=== PATIENT | male | born 1955 | race Caucasian/White ===

== ENCOUNTER → 2024-03-22 11:03 | Outpatient (REF) | payer OTHER, SELFPAY | LOC: DHCBC/DCA 11:03 | PROVIDERS: ATTENDING PHYSICIAN Nurse Practitioner; FAMILY PHYSICIAN Internal Medicine | DX: R06.09 Other forms of dyspnea (principal) | CPT/HCPCS: 78452; 93017; A9500 ==

== ENCOUNTER → 2024-03-25 10:12 | Outpatient (REF) | payer OTHER, SELFPAY | LOC: HWRCS 10:12 | PROVIDERS: ATTENDING PHYSICIAN Nurse Practitioner; FAMILY PHYSICIAN Internal Medicine | DX: R06.09 Other forms of dyspnea (principal) | CPT/HCPCS: 93306 ==

== ENCOUNTER → 2024-04-28 07:14 | Outpatient (REF) | payer OTHER, SELFPAY | LOC: HWRAD 07:14 | PROVIDERS: ATTENDING PHYSICIAN Internal Medicine | DX: R10.13 Epigastric pain (principal); K21.9 Gastro-esophageal reflux disease without esophagitis | CPT/HCPCS: 76700 ==

== ENCOUNTER → 2024-06-10 10:02 | Outpatient (REF) | payer OTHER, SELFPAY | LOC: RAD 10:02 | PROVIDERS: ATTENDING PHYSICIAN Internal Medicine Cardiovascular Disease; FAMILY PHYSICIAN Internal Medicine | DX: E78.5 Hyperlipidemia, unspecified (principal); R06.09 Other forms of dyspnea; K21.9 Gastro-esophageal reflux disease without esophagitis; I77.810 Thoracic aortic ectasia; R07.89 Other chest pain; I25.10 Atherosclerotic heart disease of native coronary artery without angina pectoris; R94.39 Abnormal result of other cardiovascular function study | CPT/HCPCS: 75574; Q9967 ==

== ENCOUNTER 2024-06-17 12:00 | Day surgery (SDC) | payer OTHER, SELFPAY ==
[2024-06-17] VITALS (11 sets, daily range): BP systolic 101–159; BP diastolic 51–95; BMI 33.8
[2024-06-17] MEDS: NSS 330 ML IV (12:52)
[2024-06-17] MEDS: NSS 1000 IV (15:40)
--- NOTE | 2024-06-17 16:31 | ITS.CL.CATH ---
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
Cardiac Catheterization
Procedure Report:
CARDIAC CATHETERIZATION REPORT
Date of Procedure: 06/17/2024
Referring: Wayne Ortez MD
Indication: Exertional angina with equivocal stress test and abnormal CTA
�
HEMODYNAMIC DATA
AO: 128/74
LV: 128/10
�
LEFT VENTRICULOGRAPHY: Normal left ventricular function with EF 58%
�
CORONARY ANGIOGRAPHY
Dominance: Right
Left Main: Short without focal stenosis
LAD: The proximal LAD is highly calcified. There is 80% ostial/proximal LAD stenosis. The remainder of the LAD has mild luminal disease.
Circumflex: There is a small ramus intermedius branch without focal disease. The remainder of the circumflex system has mild luminal irregularities.
RCA: The RCA is severely calcified and occluded in the midportion. There are bridging collaterals faintly supplying the distal vessel and there are well-developed collaterals from the circumflex filling a medium to large PDA and a two medium sized
right posterolateral branches
�
Closure Device: None-the procedure was performed via the right radial artery
�
Radiation (mGy): 465
DAP (cm2.Gy): 39.5
Fluoroscopy time: 3.8 minutes
�
CONCLUSIONS
1:�Normal left ventricular function with EF 58%
2:�Severe double- vessel CAD as described
3. Recommend elective CABG x 2 (LAD, RPDA) with possible repair of ascending TAA
4. Patient has been advised to avoid strenuous activity to avoid angina. If his anginal pattern changes he is advised to present to the emergency room for admission
�
�
Copy to: Wayne Ortez MD, Bradley Turner MD, Ernie Huerta MD
�
Zach Lawler MD, [facility], [facility]
[2024-06-17] MEDS: TOPROL XL 25 MG PO (17:42)
--- NOTE | 2024-06-17 19:17 | PTCARENOTE ---
Pt is to be discharged after cardiac cath. Pt's blood pressure labile 146/91, 112/66, 101/51, and 136/95 over a 45 minute period. Pt denies dizziness and or lightheadedness at this time. Pt ambulated around recovery room and ambulated to bathroom
without difficulty. Pt and pt's state they are comfortable being discharged to home.
== END 2024-06-17 19:25 | disposition home or self-care (01) ==
LOC: CATH 12:00
PROVIDERS: ATTENDING PHYSICIAN Internal Medicine Cardiovascular Disease; FAMILY PHYSICIAN Internal Medicine; OTHER PHYSICIAN Internal Medicine Cardiovascular Disease
DX: I25.118 Atherosclerotic heart disease of native coronary artery with other forms of angina pectoris (principal); I25.84 Coronary atherosclerosis due to calcified coronary lesion; I10 Essential (primary) hypertension; E78.5 Hyperlipidemia, unspecified
CPT/HCPCS: 93005; 93458; C1894; Q9967

== ENCOUNTER 2024-07-08 05:20 | Inpatient (IN) | payer OTHER, SELFPAY ==
[2024-07-05 08:40] VITALS: BMI 35.3
[2024-07-05 09:15] LABS: Urine Albumin Negative (Neg - Trace); Urine Bilirubin Negative (Negative); Urine Character Clear (Clear); Urine Color Yellow; Urine Glucose Negative (Negative); Urine Ketone Negative (Negative); Urine Leukocyte Negative (Negative); Urine Nitrite Negative (Negative); Urine Occult Blood Negative (Negative); Urine Urobilinogen Negative (Neg - 1+)
[2024-07-05 09:29] LABS: APTT 28.9 Sec (23.4-35.0); INR 1.12; PT 14.2 Sec (11.4-14.6)
[2024-07-05 09:39] LABS: ALT (SGPT) 24 U/L (0-50); AST (SGOT) 30 U/L (17-59); Albumin 4.1 g/dl (3.5-5.0); Alkaline Phosphatase 87 U/L (38-126); Blood Urea Nitrogen 20 mg/dl (9-20); Calcium 9.4 mg/dl (8.4-10.2); Carbon Dioxide 27 mmol/L (22-30); Chloride 104 mmol/L (98-107); Direct Bilirubin 0.1 mg/dl (0.0-0.4); Estimated Creatinine Clearance 90 ml/min; Glucose 110 mg/dl (70-99); Potassium 4.5 mmol/L (3.5-5.1); Sodium 137 mmol/L (135-145); Total Bilirubin 0.8 mg/dl (0.2-1.3); Total Protein 6.8 g/dl (6.3-8.2); eGFR > 60.00
[2024-07-05 09:52] LABS: % Eosinophils 2.3 % (0-6); % Immature Granulocytes 0.2 % (0-0.5); % Lymphocytes 25.4 % (20.5-51.1); % Monocytes 9.9 % (1.7-9.3); % Neutrophils 61.2 % (42.2-75.2); Absolute Basophils 0.1 10^3/uL (0-0.2); Absolute Eosinophils 0.1 10^3/uL (0-0.7); Absolute Lymphocytes 1.6 10^3/uL (1.2-3.4); Absolute Monocytes 0.6 10^3/uL (0.1-0.6); Absolute Neutrophils 3.8 10^3/uL (1.4-6.5); Hematocrit 39.3 % (39.0-52.0); Hemoglobin 12.4 g/dL (13.0-18.0); Mean Corp Hgb Conc. 31.6 g/dL (33.0-37.0); Mean Corpuscular Hgb 23.4 pg (27.0-31.0); Mean Corpuscular Volume 74.3 fL (80.0-94.0); Nucleated Red Blood Cells % 0 % (-); Platelet Count 180 10^3/uL (130-400); Red Blood Cell Count 5.29 10^6/uL (4.70-6.10); Red Cell Dist. Width 15.9 % (11.5-14.5); White Blood Cell Count 6.1 10^3/uL (4.8-10.8)
[2024-07-05 12:30] LABS: Glycohemoglobin (HgbA1c) 6.3 % (4.0-5.6)
--- NOTE | 2024-07-05 13:08 | CM ---
spoke to pt and in PAT's, we discussed CABG preop teaching including sternal and driving restrictions, he is prev indep, lives with his in an apt with no steps to enter. he has the ct surg educ book, soap and instructions. he is agreeable
to a f/u visit from the ct transitional care nurses after dc. cm role explained and all questions answered.
[2024-07-08] VITALS (12 sets, daily range): BP systolic 97–132; BP diastolic 46–84; BMI 34.4
[2024-07-08] MEDS: MAGNESIUM OXIDE 500 MG PO (05:43)
[2024-07-08] MEDS: LOPRESSOR 25 MG PO (05:44)
[2024-07-08] MEDS: BACTROBAN 2% OINTMENT 1 APPLIC NASAL ×2 (05:44→19:24)
[2024-07-08] MEDS: PROTONIX 40 MG PO (05:44)
--- NOTE | 2024-07-08 05:59 | PTCARENOTE ---
received pt into 2261, pt admits to 2 showers and NPO since midnight, full admission completed, med list completed, pt has no hair d/t alopecia, post op education completed, all questions answered, awaiting CVOR
--- NOTE | 2024-07-08 07:22 | W.PN.CD ---
Today's Communication / Plan
-
Anticipate routine post operative management.
Wean pressors.
Wean vent to extubate.
Maintain MAP > 65, CI > 2.2.
Impression / Plan
-
Impression/Plan: 69 y/o male with HTN, HLD, NIDDM2, hypothyroidism, hx of concussion/SDH ([place], 2019), multivessel CAD and a moderately dilated ascending aorta presenting for elective CABG, possible ascending aorta wrap vs. replacement.
#CAD
-Chronic.
-Cath shows 80% ostial/prox LAD, RCA [employer].
-Plan for CABG today.
-Anticipate routine post operative care.
#Ascending aorta dilation
-Chronic.
-Dilation up to 4.7 cm.
-Anticipate wrap vs. replacement based on findings at surgery.
#HTN
-Chronic, stable.
-Adjust medications post op.
#HLD
-Chronic, stable.
-Continue high dose, high potency statin.
#NIDDM
-Chronic, stable.
-HbA1c = 6.3%.
-The patient would likely benefit from GLP-1 agonists at discharge.
Subjective/Interval History:
Surgery today.
DATA:
Cardiac Catheterization, 06/17/2024:
CORONARY ANGIOGRAPHY
Dominance: Right.
Left Main: Short without focal stenosis.
LAD: The proximal LAD is highly calcified. There is 80% ostial/proximal LAD stenosis. The remainder of the LAD has mild luminal disease.
Circumflex: There is a small ramus intermedius branch without focal disease. The remainder of the circumflex system has mild luminal irregularities.
RCA: The RCA is severely calcified and occluded in the midportion. There are bridging collaterals faintly supplying the distal vessel and there are well-developed collaterals from the circumflex filling a medium to large PDA and a two medium sized
right posterolateral branches.
TTE, 03/25/2024:
CONCLUSIONS
Normal left ventricular size, wall thickness and systolic function. LV ejection
fraction is 55-60%.
No significant valvular disease.
No significant change since the prior study of 2019.
CT Chest, 06/12/2023:
IMPRESSION:
3 mm left lower lobe nodule is less conspicuous in attenuation, though unchanged in size, consistent with benign etiology.
No new findings.
Stable fusiform aneurysmal dilatation of the ascending aorta, 4.7 cm.
Physical Exam
Vital Signs/Labs
Vital Signs
Temp Pulse Resp Pulse Ox
36.6 C 70 20 99
07/08/24 06:03 07/08/24 06:03 07/08/24 06:03 07/08/24 06:03
07/06/24 07/07/24 07/08/24
11:59 11:59 11:59
Actual Weight 108.8 kg
07/05/24 08:51
07/05/24 08:51
PT 14.2 Sec (11.4-14.6) 07/05/24 08:51
INR 1.12 07/05/24 08:51
APTT 28.9 Sec (23.4-35.0) 07/05/24 08:51
Physical Exam
Exam deferred at Dr. Huerta's request (currently operating).
Data Reviewed
-
Date of Service: July 08, 2024
Medical Decision Making: Reviewed Test Results, Test Interpretation and Review of Case with other Provider
EKG: Tracing Personally Visualized and interpreted and Report Reviewed by me
Echo: Report Reviewed by me
X-Ray/CT/US/MRI/NUC/PET: Image Personally Visualized and interpreted and Report Reviewed by me
Medical Tests (PFT, Pathology etc): Report Reviewed by me
Labs: Labs Reviewed by me
Old Records: Reviewed
[2024-07-08 07:29] LABS: ACT+ - POC 107 Seconds (82-134)
[2024-07-08 07:41] LABS: Urine Albumin Negative (Neg - Trace); Urine Bilirubin Negative (Negative); Urine Character Clear (Clear); Urine Color Yellow; Urine Glucose Negative (Negative); Urine Ketone Negative (Negative); Urine Leukocyte Negative (Negative); Urine Nitrite Negative (Negative); Urine Occult Blood Negative (Negative); Urine Specific Gravity 1.025 (<1.030); Urine Urobilinogen Negative (Neg - 1+)
[2024-07-08 09:48] LABS: B.E. - POC -3.3 mmol/L; Glucose - POC 121 mg/dl (65-99); HCO3 - POC 21 mmol/L (21-29); Hematocrit - POC 34 % PCV (42-52); Hemodilution- POC No; Hemoglobin Calculated - POC 11.5; Ionized Calcium - POC 1.24 mmol/L (1.12-1.27); O2 Saturation %Calculated-POC 99.8 5 (92-96); PCO2 - POC 36 mmHg (35-45); PO2 - POC 236 mmHg (80-100); POC Comment BASELINE; Sodium - POC 139 mmol/L (135-145); pH - POC 7.38 (7.35-7.45)
[2024-07-08 10:06] LABS: ACT+ - POC 895 Seconds (82-134)
[2024-07-08 10:14] LABS: B.E. - POC -0.6 mmol/L; Glucose - POC 156 mg/dl (65-99); HCO3 - POC 24 mmol/L (21-29); Hematocrit - POC 27 % PCV (42-52); Hemodilution- POC Yes; Hemoglobin Calculated - POC 9.3; Ionized Calcium - POC 1.04 mmol/L (1.12-1.27); PCO2 - POC 37 mmHg (35-45); PO2 - POC 402 mmHg (80-100); POC Comment CPB; Potassium - POC 5.2 mmol/L (3.6-5.0); Sodium - POC 138 mmol/L (135-145); pH - POC 7.42 (7.35-7.45)
[2024-07-08 10:30] LABS: ACT+ - POC 859 Seconds (82-134)
[2024-07-08 10:40] LABS: B.E. - POC -1.6 mmol/L; Glucose - POC 160 mg/dl (65-99); HCO3 - POC 23 mmol/L (21-29); Hematocrit - POC 32 % PCV (42-52); Hemodilution- POC Yes; Hemoglobin Calculated - POC 10.8; Ionized Calcium - POC 1.13 mmol/L (1.12-1.27); O2 Saturation %Calculated-POC 99.9 5 (92-96); PCO2 - POC 38 mmHg (35-45); PO2 - POC 325 mmHg (80-100); POC Comment CPB; Potassium - POC 4.7 mmol/L (3.6-5.0); Sodium - POC 140 mmol/L (135-145)
[2024-07-08 10:54] LABS: ACT+ - POC 743 Seconds (82-134)
--- NOTE | 2024-07-08 11:03 | CM ---
pt in OR today, cm to follow.
[2024-07-08 11:15] LABS: B.E. - POC -0.4 mmol/L; Glucose - POC 136 mg/dl (65-99); HCO3 - POC 24 mmol/L (21-29); Hematocrit - POC 32 % PCV (42-52); Hemodilution- POC Yes; Hemoglobin Calculated - POC 10.9; Ionized Calcium - POC 1.11 mmol/L (1.12-1.27); O2 Saturation %Calculated-POC 99.9 5 (92-96); PCO2 - POC 38 mmHg (35-45); PO2 - POC 352 mmHg (80-100); POC Comment WARM; Potassium - POC 4.8 mmol/L (3.6-5.0); Sodium - POC 143 mmol/L (135-145); pH - POC 7.41 (7.35-7.45)
[2024-07-08 11:18] LABS: ACT+ - POC 98 Seconds (82-134)
[2024-07-08 11:58] LABS: B.E. - POC -1.5 mmol/L; Glucose - POC 114 mg/dl (65-99); HCO3 - POC 24 mmol/L (21-29); Hematocrit - POC 32 % PCV (42-52); Hemodilution- POC Yes; Hemoglobin Calculated - POC 10.9; Ionized Calcium - POC 1.23 mmol/L (1.12-1.27); O2 Saturation %Calculated-POC 99.9 5 (92-96); PCO2 - POC 40 mmHg (35-45); PO2 - POC 337 mmHg (80-100); POC Comment POST; Sodium - POC 143 mmol/L (135-145); pH - POC 7.38 (7.35-7.45)
--- NOTE | 2024-07-08 12:09 | W.CVOR.SURPR ---
CVOR Surgeon Immed Pre Op
-
I have examined this patient prior to performance of the scheduled procedure.
The patient's condition is unchanged from the time of the dictated/written History and
Physical and the patient is able to undergo the scheduled procedure.
--- NOTE | 2024-07-08 12:09 | W.IMMPOSTOP ---
Addendum entered and electronically signed by Ernie Huerta MD 07/08/24 13:38:
[id number]
Original Note:
Surgical Immed Post Op Note
-
CARDIAC SURGERY OPERATIVE NOTE:
Preoperative Dx:
2V CAD
Enlarged ascending aorta
Postoperative Dx:
Same
Procedures:
1) Median sternotomy
2) Takedown of MARYAN (narrow pedicle)
3) Endoscopic harvest/prep of RLE GSV
4) CABG x 2 (MARYAN to LAD, GSV to PDA)
5) Ascending aortic wrap w/ hemashield graft
Surgeon:
Ernie Huerta M.D.
Assistants:
Ally WardAStephanie-CStephanie; escrow assistant throughout, closure
Richy SalgadoCStephanie; endoscopic harvest/prep of RLE GSV, closure ([id number])
Anesthesia:
Timothy Arevalo M.D. and Tyra LeonardR.N.A.
Perfusion:
Brandi Veloz C.C.P.; XC: 63min, CPB: 86min
Findings:
MARYAN was healthy appearing conduit w/ very brisk blood flow; ELD 2.5mm
GSV was healthy appearing conduit w/ ELD 3.5-4.0mm
LAD was visible on epicardial surface, moderately dense scattered calcifications; ELD 2.75mm
PDA was visible on epicardial surface, normal gutierrez; ELD 2.5mm
Ascending aorta was enlarged, but otherwise had a normal phenotypical appearance w/ normal wall thickness (max diameter on MATTEO 4.2cm, on CT (per my interpretation) 4.3-4.5cm, on CT (per radiology report) 4.9cm
MATTEO: Normal biventricular function w/o RWMA, no significant valvular pathology
Implants:
Hemashield Hernando vascular graft: LOT [id number]; SN: [id number]
CT x 3 (left pleural, inferior mediastinal, superior mediastinal)
Sternal wires x 8
Sternal 'X' plate w/ 8 - 14mm screws; sternal 'square' plate w/ 4 - 12mm screws
Transfusions:
None
Complications:
None
Condition:
60 isoelectric sinus, 111/73, CVP 19. 100%
GTTS: levophed 4, precedex 0.6, insulin 1
Stable/guarded to CVICU
--- NOTE | 2024-07-08 12:32 | CON.INTV ---
Consultation
Consultation Request
Date/Time Consultation Requested: 07/08/2024 - 1203
Date/Time Consultation Performed: 07/08/2024 - 1231
Requesting Provider: Huma Deluca PA-C
Performing Provider: Warren Connor MD
Reason for Consultation: s/p CABG x2 + aortic wrap
Medical History
-
Chief Complaint: Elective CABG + aortic wrap
History of Present Illness:
69-year-old male non-smoker with a past medical history of multivessel CAD, AAA, HTN/HLD, hypothyroidism, DM type II, mild NELLY using oral appliance device, history of diverticulosis, bilateral diaphragmatic hernia, stable LLL 4 mm pulmonary nodule,
history of concussion c/b SDH and lumbosacral DDD who presents with elective CABG + aortic wrap. Patient known to cardiothoracic surgery service with last office visit on 06/21/[address] Huerta. He has known multivessel CAD and surgical
revascularization was reviewed including its risks and benefits. He also has stable aneurysmal dilation of his ascending aorta up to 4.7 cm. Ascending aortic wrap was also recommended at the time of his CABG. Patient noted minimal dyspnea with
exertion and minor episodes of chest discomfort with exertion. After reviewing the risk and benefits of the procedure patient agreed to proceed with surgical intervention. Today he underwent CABG x 2 and ascending aortic wrap with Hemashield
graft. Patient tolerated procedure with no immediate complications, and transferred to the CVICU with 3 chest tubes (left pleural + mediastinal x 2). Critical care services consulted for additional management/recommendations.
When I saw the patient he was in bed, intubated on SIMV at 14/600/40%/5, PSV: 5. PIP is 24 cmH2O, he is breathing at 14 breaths minute with VTe of 494 mL. BP via left radial A-line: 110/70, BP via NIBP: 122/70, and heart rate 54. He is currently
on levo at 2 mcg/min + insulin at 2.6 units/hr.
Of note patient follows with us in the [facility] office with Dr. Mckenzie, last office visit on 07/28/2023. Patient follows for mild NELLY using OAD with hypnagogic hallucination and LLL 4mm nodule (stable from 09/2020 - 05/2022). His baseline sleep apnea
test via [facility] in June 2022 showed an ИВАН of 6.4 with a geovanny desaturation of 84%.
PMHx: Multivessel CAD, AAA without rupture, hypertension, hyperlipidemia, hypothyroidism, DM type II, GERD, gastritis, colonic polyps, plantar fasciitis, history of concussion c/b SDH, lumbosacral DDD, diverticulosis, bilateral diaphragmatic hernia,
alopecia, LLL 4 mm pulmonary nodule, history of tinnitus, mild NELLY on oral appliance device
PSHx: Left knee arthroscopy, C5-6 epidural
Past Medical History
Past Medical History: Other (Above as per HPI)
Past Surgical History: Other (Above as per HPI)
Social History
Tobacco: Non-smoker
Alcohol: Occasional (Socially on the weekends with beer and wine)
Drug: None
Family History
Family History: CAD (Father + mother), Hypertension (Father) and Other (Brother: History of MS; at age 60 from MRSA pneumonia; Brother: Aortic aneurysm)
Allergies / Home Medications
Allergies
Allergy/AdvReac Type Severity Reaction Status Date / Time
No Known Allergies Allergy Verified 06/30/24 10:40
Home Medications
�Medication �Instructions �Recorded �Confirmed �Last Taken �Type
aspirin 81 mg tablet,delayed 81 mg PO DAILY 08/02/20 07/08/24 07/07/24 08:00 History
release (Ecotrin Low Strength)
omeprazole 20 mg capsule,delayed 20 mg PO DAILY 08/02/20 07/08/24 07/07/24 08:00 History
release
valacyclovir 500 mg tablet 500 mg PO DAILY PRN cold sores 08/02/20 07/08/24 06/27/24 08:00 History
esomeprazole magnesium 20 mg 20 mg PO QPM 06/09/24 07/08/24 07/07/24 18:00 History
capsule,delayed release
losartan 100 mg tablet 100 mg PO DAILY 06/09/24 07/08/24 07/07/24 08:00 History
metoprolol succinate 25 mg 25 mg PO QPM 06/09/24 07/08/24 07/07/24 18:00 History
tablet,extended release 24 hr
(Toprol XL)
atorvastatin 80 mg tablet (Lipitor) 80 mg PO QPM 06/17/24 07/08/24 07/07/24 18:00 History
levothyroxine 112 mcg tablet 112 mcg PO DAILY 06/17/24 07/08/24 07/07/24 06:00 History
nitroglycerin 0.4 mg sublingual 0.4 mg sublingual [id number] PRN 06/17/24 07/08/24 06/27/24 08:00 Rx
tablet chest pain #25 tabs
sucralfate 1 gram tablet 1 g PO BID 06/17/24 07/08/24 07/07/24 12:00 History
Review of Systems
-
Unable to Obtain full review of systems at this time due to: Patient Intubation
Vitals / Labs / Diagnostic Testing
Vital Signs
Temp Pulse Resp BP Pulse Ox
97.7 F 61 14 125/78 98
07/08/24 12:49 07/08/24 13:46 07/08/24 13:46 07/08/24 13:46 07/08/24 13:46
Lab Data
07/08/24 12:44
Laboratory Results
07/08/24
12:44
PT 17.5 H
INR 1.46
APTT 30.4
pH 7.39
pCO2 38
pO2 156 H
HCO3 23.0
O2 Delivery Level
Microbiology
07/05/24 08:51 Nose MRSA Screen - Final
No Methicillin Resistant Staphylococcus aureus isolated.
Diagnostic Testing:
Physical Exam
-
HEENT: Normocephalic, Anicteric and Other (ETT in place)
Cardiovascular: S1/S2 and Peripheral Edema (negative)
Respiratory: Wheeze (negative), Rales (negative), Rhonchi (negative), Non-Labored Respirations and Other (Mechanical breath sounds heard bilaterally)
GI: Soft, Non Distended, Non Tender and Normal Bowel Sounds
Neurology: Tremors (negative) and Other (Sedated, easily arousable to voice and tactile stimulation)
Skin: Warm and Dry
General: Respiratory Distress (negative), Comfortable, Fever (negative), Chills (negative) and Sweats (negative)
Assessment
-
Assessment: 69-year-old male non-smoker with a past medical history of multivessel CAD, AAA, HTN/HLD, hypothyroidism, DM type II, mild NELLY using oral appliance device, history of diverticulosis, bilateral diaphragmatic hernia, stable LLL 4 mm
pulmonary nodule, history of concussion c/b SDH and lumbosacral DDD who presents with elective CABG + aortic wrap. Patient known to cardiothoracic surgery service with last office visit on 06/21/[address] Huerta. He has known multivessel CAD and
surgical revascularization was reviewed including its risks and benefits. He also has stable aneurysmal dilation of his ascending aorta up to 4.7 cm. Ascending aortic wrap was also recommended at the time of his CABG. Patient noted minimal
dyspnea with exertion and minor episodes of chest discomfort with exertion. After reviewing the risk and benefits of the procedure patient agreed to proceed with surgical intervention. On 07/08/2024 he underwent CABG x 2 and ascending aortic wrap
with Hemashield graft. Patient tolerated procedure with no immediate complications, and transferred to the CVICU with 3 chest tubes (left pleural + mediastinal x 2). Critical care services consulted for additional management/recommendations.
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
diaphragmatic hernia, alopecia, LLL 4 mm pulmonary nodule, history of tinnitus, mild NELLY on oral appliance device
Impression:
#MV CAD s/p CABG x 2 (POD #0)
#AAA without rupture s/p ascending aortic wrap with Hemashield graft (POD #0)
#Anemia (last Hb 12.4 on 07/05/2024)
#Mild NELLY on oral appliance device
#History of hypertension
#History of hyperlipidemia
#History of DM type II
#GERD
Plan:
Ventilator settings reviewed
FiO2 will be weaned to maintain SpO2 >90-94%
Minute ventilation will be adjusted
Arterial blood gases will be monitored
Spontaneous breathing trial will be attempted with hopeful extubation after anesthesia/sedation wear off
prn nebulized bronchodilators
Pulmonary artery catheter parameters will be followed
Pressors/antihypertensive/inotropes/diuretics will be provided as needed
Maintain MAP>65
Replete electrolytes with K>4, Mg>2
Monitor chest tube output (left pleural chest tube x 1 + mediastinal chest tubes x 2)
Monitor hemoglobin
Monitor platelet count and coags
Transfuse blood products as needed to maintain Hb>7g/dL, plt>50k (given post-operative status)
CT surgery managing chest tubes
Monitor blood sugar to maintain euglycemia with goal BG 140-180
Insulin drip per protocol
Aspiration precautions
VAP prevention protocol
DVT prophylaxis
Early nutrition
Early mobilization
Patient recommended to follow-up with our [facility] office as last visit was on 07/28/[address] Mckenzie. This will be arranged for the patient.
Critical care statement: A total of 46 minutes of critical care time was provided for this patient today. This includes management of ventilator, spontaneous breathing trial, arterial blood gases, pressors, of unstable vital signs, evaluation of the
patient at bedside, reviewing the patient's pertinent medical records including radiographs, microbiology, laboratory evaluations, and discussion with primary team and critical care nursing.
Data:
CXR 07/08/2024: No acute disease of the chest. No pneumothorax.
[2024-07-08 12:48] LABS: Glucose - Point of Care 129 mg/dl (70-99)
[2024-07-08] MEDS: DILAUDID 0.5 MG IV ×2 (12:57→19:35)
[2024-07-08 12:59] LABS: B.E. -1.7 mmol/L; Ionized Calcium 1.16 mMOL/L (1.15-1.33); O2 Saturation % 99.7 % (94-98); PCO2 38 mmHg (35-48); PO2 156 mmHg (83-108); Potassium 3.9 mMOL/L (3.5-5.1); Sodium 137 mMOL/L (136-145); pH 7.39 (7.35-7.45)
[2024-07-08 13:11] LABS: Hematocrit 33.1 % (39.0-52.0); Hemoglobin 10.7 g/dL (13.0-18.0); Platelet Count 159 10^3/uL (130-400)
[2024-07-08] MEDS: CALCIUM CHLORIDE 10% SYRINGE 50 MG IV (13:13)
[2024-07-08] MEDS: CALCIUM CHLORIDE 10% SYRINGE 50 ML IV (13:13)
[2024-07-08] MEDS: KCL 50 IV ×2 (13:13→14:28)
[2024-07-08 13:14] LABS: INR 1.46; PT 17.5 Sec (11.4-14.6)
[2024-07-08 13:15] LABS: APTT 30.4 Sec (23.4-35.0)
[2024-07-08] MEDS: SYNTHROID PO (13:16)
[2024-07-08] MEDS: ANCEF 10 IV ×2 (13:17)
[2024-07-08] MEDS: NSS 500 IV (13:18)
[2024-07-08] MEDS: NEURONTIN PO ×2 (13:18→15:04)
[2024-07-08 13:22] LABS: Blood Urea Nitrogen 20 mg/dl (9-20); Estimated Creatinine Clearance 111 ml/min; Glucose 128 mg/dl (70-99); Magnesium 2.6 mg/dl (1.6-2.3)
--- NOTE | 2024-07-08 13:23 | PTCARENOTE ---
Received pt from CVOR team. Intubated and sedated on the vent. Vent per anesthesia. # 8 ETT at 23 rt lip. pulse ox 100% RT IJ cordis with slick. LT radial A line transducing. Lines leveled, recalibrated and flushed. SR w/ BBB on monitor.
Chest tubes x 3 t o- 20 cm suction. No air leak or crepitus noted. RT groin puncture intact. Sternal incision with Aquacel, c,d,i. RT leg SVG site well approximated with Julio wrap intact. Pulses palpable. No edema appreciated. Drips on arrival
as follows: Insulin, precedex, and levophed, see flowsheet for totals/rates.
[2024-07-08 14:01] LABS: Glucose - Point of Care 188 mg/dl (70-99)
[2024-07-08] MEDS: PRECEDEX 100 IV (14:28)
[2024-07-08] MEDS: TYLENOL PO (14:29)
--- NOTE | 2024-07-08 14:52 | PTCARENOTE ---
Starting to wake spontaneously . nods head appropriately. Remains sleepy at present. Precedex weaned off. Will continue to monitor closely.
[2024-07-08 15:00] LABS: Glucose - Point of Care 133 mg/dl (70-99)
[2024-07-08] MEDS: PACERONE PO (15:04)
[2024-07-08] MEDS: OFIRMEV 100 IV (15:32)
--- NOTE | 2024-07-08 15:48 | PTCARENOTE ---
Attempted to CPAP patient. Pt remains too drowsy at present. Placed back on SIMV. Will attempt once more awake.
[2024-07-08 16:04] LABS: Glucose - Point of Care 107 mg/dl (70-99)
--- NOTE | 2024-07-08 16:25 | CM ---
pt in OR today, cm to follow
[2024-07-08 16:30] LABS: Hematocrit 34.3 % (39.0-52.0); Platelet Count 188 10^3/uL (130-400)
--- NOTE | 2024-07-08 16:35 | PTCARENOTE ---
Pt much more awake and becoming restless in bed. RT called to initiate CPAP trial. Pt remains restless. Washed with CHG wipes, turned and repositioned. Gown applied. Will obtain ABG as per protocol
[2024-07-08 16:49] LABS: Glucose - Point of Care 118 mg/dl (70-99)
[2024-07-08 16:58] LABS: B.E. -5.5 mmol/L; HCO3 20.7 mmol/L (21-28); Ionized Calcium 1.31 mMOL/L (1.15-1.33); PCO2 42 mmHg (35-48); PO2 136 mmHg (83-108); Sodium 138 mMOL/L (136-145)
--- NOTE | 2024-07-08 16:59 | PTCARENOTE ---
While CPAP trial ongoing, pt very diaphoretic. Blood sugar obtained and 118. VSS. Face washed, cool cloth applied to forehead
[2024-07-08 17:03] LABS: O2 Therapy CPAP 5/5
--- NOTE | 2024-07-08 17:11 | PTCARENOTE ---
Extubated to 6 L NC. 97%. updated, and at bedside
--- NOTE | 2024-07-08 17:19 | RESPNOTE ---
1710
Extubated to 6 liter NC without incident 97%
IS started 1250mL
[2024-07-08] MEDS: LIPITOR PO (17:32)
[2024-07-08] MEDS: LOW STRENGTH ASPIRIN 81 MG PO (17:36)
[2024-07-08] MEDS: ROXICODONE 5 MG PO ×2 (17:36→21:49)
[2024-07-08] MEDS: ZOFRAN 4 MG IV (17:44)
[2024-07-08 18:13] LABS: B.E. -6.9 mmol/L; HCO3 18.5 mmol/L (21-28); PCO2 36 mmHg (35-48); PO2 114 mmHg (83-108); pH 7.32 (7.35-7.45)
[2024-07-08] MEDS: SODIUM BICARBONATE 50 MEQ IV ×2 (18:20→21:54)
[2024-07-08 19:05] LABS: Glucose - Point of Care 136 mg/dl (70-99)
[2024-07-08] MEDS: ANCEF 5 IV (19:24)
[2024-07-08] MEDS: SENOKOT-S 1 TABLET PO (19:25)
[2024-07-08 20:10] LABS: B.E. -5.3 mmol/L; HCO3 20.6 mmol/L (21-28); O2 Saturation % 98.6 % (94-98); PCO2 41 mmHg (35-48); PO2 95 mmHg (83-108); pH 7.31 (7.35-7.45)
--- NOTE | 2024-07-08 20:20 | PTCARENOTE ---
Pt received from kvein RN. Walking rounds completed. Pt AAOx3. Sinus rhythm to sinus monique on the tele monitor. HR 50-60s. BP 100-120s/60-70s. Levo titrated OFF per protocol. CVP 8-12. Palpable pulses throughout. Pt on 4 L NC. POX 96-99%. Deep
breathing and IS encouraged. Lung sounds diminished at the base. Mediastinal CT x2 and Left pleural CT to -20 suction, no air-leak or tidaling noted, and output WNL. CT dressing changed. Abdomen round and nontender. Arthur catheter CDI and draining
yellow urine. Denies nausea at this time. Right groin puncture site intact. Right leg SVG site wrapped in NERISSA wrap and CDI. Sternal Aquacel CDI. Left radial a-line intact. Right IJ cordis w/ slick CDI. All lines leveled, zeroed, and flushed. Pt
diaphoretic. Pt repositioned in bed, given ice packs, fan turned on, and gown/lines changed. Pt c/o pain - see JAN. Glycemic protocol followed. See worklist for full nursing assessment and interventions. Ordered ABG drawn and sent. Call kaufman within
reach.
[2024-07-08 21:10] LABS: Glucose - Point of Care 127 mg/dl (70-99)
[2024-07-08] MEDS: NEURONTIN 100 MG PO (21:49)
[2024-07-08] MEDS: TYLENOL 1000 MG PO (21:49)
[2024-07-08] MEDS: REGLAN 10 MG IV (22:09)
--- NOTE | 2024-07-08 22:30 | PTCARENOTE ---
At ~2150, pt c/o nausea and was retching. Pt was sat up in bed and given Reglan - see MAR. At this time, pt HR and BP dropped. CTPA at the bedside. Pt never lost consciousness and quickly recovered. No emesis. VSS. Pt AAOx3. Pt repositioned in bed.
Call kaufman within reach.
[2024-07-08 23:07] LABS: Glucose - Point of Care 152 mg/dl (70-99)
[2024-07-08] MEDS: LR 500 IV (23:16)
[2024-07-09] VITALS (25 sets, daily range): BP systolic 97–128; BP diastolic 56–84; PULSE 72; O2SAT 93–97; BMI 34.7
--- NOTE | 2024-07-09 00:23 | PTCARENOTE ---
Pt reassessed. Pt SR on the tele monitor. HR 70s. BP 100-120s/60-70s. CVP 5-10. Pt remains on 4 L NC. POX 95%. CT assessment unchanged from previous. 500 LR bolus initiated as ordered. All surgical sites stable. Glycemic protocol followed. All lines
leveled, zeroed, and flushed. Arthur catheter CDI and draining yellow urine. Call kaufman within reach.
[2024-07-09 01:07] LABS: Glucose - Point of Care 120 mg/dl (70-99)
[2024-07-09] MEDS: DILAUDID 0.5 MG IV ×2 (01:10→23:24)
[2024-07-09 01:30] LABS: Glucose - Point of Care 95 mg/dl (70-99)
[2024-07-09 02:04] LABS: Glucose - Point of Care 121 mg/dl (70-99)
[2024-07-09 03:09] LABS: Glucose - Point of Care 117 mg/dl (70-99)
[2024-07-09 03:43] LABS: Hematocrit 30.7 % (39.0-52.0); Hemoglobin 9.8 g/dL (13.0-18.0); Mean Corp Hgb Conc. 31.9 g/dL (33.0-37.0); Mean Corpuscular Hgb 22.8 pg (27.0-31.0); Mean Corpuscular Volume 71.4 fL (80.0-94.0); Mean Platelet Volume 10.6 fL (7.4-10.4); Platelet Count 146 10^3/uL (130-400); Red Cell Dist. Width 16.1 % (11.5-14.5); White Blood Cell Count 16.6 10^3/uL (4.8-10.8)
[2024-07-09 03:57] LABS: Blood Urea Nitrogen 27 mg/dl (9-20); Calcium 9.2 mg/dl (8.4-10.2); Carbon Dioxide 26 mmol/L (22-30); Chloride 109 mmol/L (98-107); Estimated Creatinine Clearance 111 ml/min; Glucose 108 mg/dl (70-99); Magnesium 2.1 mg/dl (1.6-2.3); Potassium 4.7 mmol/L (3.5-5.1); Sodium 142 mmol/L (135-145); eGFR > 60.00
[2024-07-09 04:11] LABS: Glucose - Point of Care 126 mg/dl (70-99)
[2024-07-09] MEDS: ANCEF 5 IV ×2 (04:13→11:22)
[2024-07-09 05:01] LABS: Glucose - Point of Care 99 mg/dl (70-99)
--- NOTE | 2024-07-09 05:02 | W.PN.CT ---
Addendum entered and electronically signed by Ernie Huerta MD 07/09/24 08:57:
I saw and examined the patient.
The PA's note was reviewed and I agree with the note.
Comment:
Postop day #1 status post coronary bypass grafting x 2 (MARYAN to LAD, greater saphenous vein to PDA), and ascending aortic wrap
No major overnight issues. Off vasoactive infusions. De-lined this a.m. CXR: Mild to moderate pulmonary edema, no significant effusions, bilateral atelectasis
Diuresis
Aspirin/Plavix/statin/beta-deondre
OOB, ambulate
Maintain chest tubes today
SUGEY Arthur
Original Note:
Today's Communication / Plan
-
Patient is progressing well.
Off vasoactive infusions. Invasive monitoring lines were removed. SLIC catheter removed.
Aspirin, high intensity statin, consider low-dose beta-deondre today.
EKG reviewed: Sinus rhythm with no significant ST changes. Official report pending.
Wean nasal cannula oxygen as tolerated for oxygen sat goals greater than 90%. Incentive spirometry encouraged. Mobilize.
Nausea/dry heaving has improved. Continue as needed Zofran and Reglan. Belly soft.
Mild 1+ peripheral edema. Consider gentle diuresis.
Mild leukocytosis consistent with postoperative reaction. Monitor closely. Afebrile.
Out of bed, ambulate, cardiac rehab.
Excellent initial progress.
Assessment / Plan
-
CABG x 2 with MARYAN to LAD, GSV to PDA, ascending aortic wrap with Hemashield graft on 07/08/[address] Huerta, POD #1
MATTEO: Prebypass LVEF 55% with no regional wall motion normalities, trace MR, trace. Post bypass LVEF 60% with no new regional wall motion abnormalities, trace TR, trace PI, trace AI, no MR
Thoracic aortic aneurysm
Coronary artery disease
Hypertension
Hyperlipidemia
Hypothyroidism
Type 2 diabetes
Gastroesophageal reflux disease
Gastritis
Colon polyps
HNP C5/6
Plantar fasciitis
Concussion
Subdural hematoma
Degenerative disc disease
Diverticulitis
Bilateral diaphragmatic hernias
Nephritis
Alopecia
4 mm left lower lobe nodule
Tinnitus
Acute postoperative blood loss anemia
Acute postoperative respiratory insufficiency
Acute postoperative pain
Acute postoperative hypovolemia
Acute postoperative atelectasis
Acute postoperative distributive shock now resolved.
Subjective
Procedure
CABG x 2 with MARYAN to LAD, GSV to PDA, ascending aortic wrap with Hemashield graft on 07/08/[address] Huerta, POD #1
MATTEO: Prebypass LVEF 55% with no regional wall motion normalities, trace MR, trace. Post bypass LVEF 60% with no new regional wall motion abnormalities, trace TR, trace PI, trace AI, no MR
-
Date of Service: July 09, 2024
Feels okay. Having a lot of pain. Nausea and dry heaving last night has resolved. No other new concerns.
Objective Data
-
Lab Results
07/09/24 03:09
07/09/24 03:09
PT 17.5 Sec (11.4-14.6) H 07/08/24 12:44
INR 1.46 07/08/24 12:44
APTT 30.4 Sec (23.4-35.0) 07/08/24 12:44
Vital Signs
Vital Signs
Temp Pulse Resp BP Pulse Ox
98.1 F 67 19 114/70 95
07/09/24 04:00 07/09/24 05:00 07/09/24 05:00 07/09/24 04:00 07/09/24 05:00
CT Intake/Output/Weight
07/08/24 07/08/24 07/09/24
06:59 18:59 06:59
Intake Total 238.9 / 381.2 142.3 / 381.2
Output Total 495 / 1152 657 / 1152
Balance -256.1 / -770.8 -514.7 / -770.8
SaO2: 95
Physical Exam
-
General: Awake and Oriented
Cardiovascular: Regular rate & rhythm
Respiratory: Clear and Equal
Sternum: Stable
Incision: Dressing Intact
Extremities: Edema +1
Data Reviewed
-
Lab Results: Results Reviewed
Medications: Active Meds Reviewed
Chest X-Ray: Report Reviewed and Image Reviewed
--- NOTE | 2024-07-09 05:10 | PTCARENOTE ---
Pt reassessed. Pt SR on the tele monitor. HR 60-70s. BP 110's/60s. Pt remains on 4 L NC. POX 94%. CT assessment unchanged. Arthur catheter intact and draining yellow urine. All surgical sites stable. EKG obtained. Left radial a-line, slick, and CVP
discontinued per CTPA. Glycemic protocol followed. Call kaufman within reach.
[2024-07-09] MEDS: OFIRMEV 100 IV (05:39)
[2024-07-09] MEDS: TYLENOL PO (05:41)
[2024-07-09] MEDS: ZOFRAN 4 MG IV (05:59)
[2024-07-09 06:07] LABS: Glucose - Point of Care 110 mg/dl (70-99)
[2024-07-09] MEDS: SYNTHROID 112 MCG PO (06:07)
--- NOTE | 2024-07-09 06:42 | PTCARENOTE ---
Attempted to get pt OOB w/ 3 person assist. Pt able to sit at edge of bed. BP sitting at edge of bed 97/56. MAP 68. Pt stated he felt lightheaded and dizzy. Pt laid back down in bed at this time. Bed weight obtained. VSS. Call kaufman within reach.
[2024-07-09 08:03] LABS: Glucose - Point of Care 101 mg/dl (70-99)
--- NOTE | 2024-07-09 08:11 | W.PN.INTV ---
Today's Communication / Plan
Recommendations
Up OOB as tolerated
Pain control
BG goal 140�180
Cardiac rehab consult
Encourage incentive spirometer use 10 x/hr for at least 4 hours a day
Patient downgraded to CVICU�telemetry status. Cage Tender/Pulmonary service will now sign off. Please reconsult if there are any additional questions/concerns, or if patient's respiratory status deteriorates.
Assessment
-
Assessment: 69-year-old male non-smoker with a past medical history of multivessel CAD, AAA, HTN/HLD, hypothyroidism, DM type II, mild NELLY using oral appliance device, history of diverticulosis, bilateral diaphragmatic hernia, stable LLL 4 mm
pulmonary nodule, history of concussion c/b SDH and lumbosacral DDD who presents with elective CABG + aortic wrap. Patient known to cardiothoracic surgery service with last office visit on 06/21/[address] Huerta. He has known multivessel CAD and
surgical revascularization was reviewed including its risks and benefits. He also has stable aneurysmal dilation of his ascending aorta up to 4.7 cm. Ascending aortic wrap was also recommended at the time of his CABG. Patient noted minimal
dyspnea with exertion and minor episodes of chest discomfort with exertion. After reviewing the risk and benefits of the procedure patient agreed to proceed with surgical intervention. On 07/08/2024 he underwent CABG x 2 and ascending aortic wrap
with Hemashield graft. Patient tolerated procedure with no immediate complications, and transferred to the CVICU with 3 chest tubes (left pleural + mediastinal x 2). Critical care services consulted for additional management/recommendations.
Chronic conditions ASSOCIATE PARTNER: Multivessel CAD, AAA without rupture, hypertension, hyperlipidemia, hypothyroidism, DM type II, GERD, gastritis, colonic polyps, plantar fasciitis, history of concussion c/b SDH, lumbosacral DDD, diverticulosis, bilateral
diaphragmatic hernia, alopecia, LLL 4 mm pulmonary nodule, history of tinnitus, mild NELLY on oral appliance device
Impression:
#MV CAD s/p CABG x 2 (POD #1)
#AAA without rupture s/p ascending aortic wrap with Hemashield graft (POD #1)
#Anemia (last Hb 12.4 on 07/05/2024)
#Thrombocytopenia (mild)
#Mild NELLY on oral appliance device
#History of hypertension
#History of hyperlipidemia
#History of DM type II
#GERD
Plan:
Patient successfully extubated to nasal cannula on evening of 07/08
Currently on 2 L/min nasal cannula; titrate to maintain SpO2 >90-94%
prn nebulized bronchodilators � not currently bronchospastic
Encourage incentive spirometer use 10x/hr for at least 4 hrs a day
Maintain MAP>65
Replete electrolytes with K>4, Mg>2
Monitor chest tube output (left pleural chest tube x 1 + mediastinal chest tubes x 2)
Monitor hemoglobin
Monitor platelet count and coags
Transfuse blood products as needed to maintain Hb>7g/dL, plt>50k (given post-operative status)
CT surgery managing chest tubes
Monitor blood sugar to maintain euglycemia with goal BG 140-180
Insulin SQ supplementation as needed to maintain BG goal as above
Aspiration precautions
DVT prophylaxis
Early nutrition
Early mobilization
Patient recommended to follow-up with our [facility] office as last visit was on 07/28/[address] Mckenzie. This will be arranged for the patient.
Patient downgraded to CVICU�telemetry status. Cage Tender/Pulmonary service will now sign off. Thank you for allowing us to be involved in the care of this patient. Please reconsult if there are any additional questions/concerns, or if patient's
respiratory status deteriorates.
Total time spent today was 55 minutes for this encounter. Time includes reviewing laboratory test/imaging results, reviewing pertinent medical records, obtaining and reviewing medical history, performing an appropriate exam, ordering medications,
tests and procedures. Time also includes documentation of this encounter, coordinating patient care and communicating with other healthcare professionals. Total time does not include separately billed tests performed on this date of service.
Data:
CXR 07/08/2024: No acute disease of the chest. No pneumothorax.
CXR 07/09/2024: Mild cardiomegaly; new mild right lower lung atelectasis.
Subjective Dataa
Subjective Data
Date of Service:
Date of Service: July 09, 2024
Chief Complaint: Cage Tender Follow Up and Pulmonary Follow Up
Subjective:
Seen and evaluated today at bedside. Patient doing well, although he vomited overnight and became bradycardic. Currently endorses chest pain/back pain. Patient's , Brielle, at bedside. All questions were answered. Currently on 2 L/min nasal
cannula, saturating 98%. Left pleural chest tube + mediastinal chest tubes x [address]. He has some chest pain with deep inspiration, but denies STYLES, abdominal pain, nausea, fevers or chills.
Review of Systems
General: Other (Negative unless mentioned above)
Objective Data
Data Reviewed
Vital Signs / I&O / Oxygen:
Vital Signs
Temp Pulse Resp BP Pulse Ox
98.8 F 72 16 115/66 95
07/09/24 08:00 07/09/24 11:00 07/09/24 09:00 07/09/24 11:00 07/09/24 09:10
Intake and Output
07/08/24 07/09/24 07/10/24
06:59 06:59 06:59
Intake Total 406.3 / 419.8 313.1 / 313.1
Output Total 1190 / 1220 115 / 115
Balance -783.7 / -800.2 198.1 / 198.1
SaO2 [SIMV] 100
SaO2 95
Nasal Cannula flow liters per 4
minute
Physical Exam
General: Respiratory Distress (negative), Comfortable, Pain (Postoperative chest pain), Chills (negative) and Sweats (negative)
HEENT: Normocephalic and Anicteric
Cardiovascular: S1-S2 and Peripheral Edema (negative)
Respiratory: Wheeze (negative), Crackles (Bibasilar), Rhonchi (negative), Accessory Resp Muscle Use (negative) and Chest Tube (Left pleural chest tube x 1+ mediastinal chest tubes x 2)
GI: Soft, Distended (Abdominal obesity), Non Tender and Normal Bowel Sounds
Neurology: AO x 3 and Tremors (negative)
Skin: Warm, Dry and Jaundice (negative)
Labs/Micro/Reports
Lab Data
07/09/24 03:09
07/09/24 03:09
Laboratory Results
07/08/24 07/08/24 07/08/24
12:44 16:48 18:10
PT 17.5 H
INR 1.46
APTT 30.4
pH 7.39 7.30 L 7.32 L
pCO2 38 42 36
pO2 156 H 136 H 114 H
HCO3 23.0 20.7 L 18.5 L
O2 Delivery Level Cpap 5/5
07/08/24
20:03
PT
INR
APTT
pH 7.31 L
pCO2 41
pO2 95
HCO3 20.6 L
O2 Delivery Level
Microbiology
07/05/24 08:51 Nose MRSA Screen - Final
No Methicillin Resistant Staphylococcus aureus isolated.
[2024-07-09] MEDS: NEURONTIN 100 MG PO ×3 (08:24→21:41)
[2024-07-09] MEDS: PROTONIX 40 MG PO (08:24)
[2024-07-09] MEDS: FLEXERIL 5 MG PO (08:24)
[2024-07-09] MEDS: LIDOCAINE 4% PATCH 1 PATCH TOPICAL (09:23)
[2024-07-09] MEDS: LOPRESSOR 12.5 MG PO ×2 (09:23→19:49)
[2024-07-09] MEDS: BACTROBAN 2% OINTMENT 1 APPLIC NASAL ×2 (09:24→19:49)
[2024-07-09] MEDS: PLAVIX 75 MG PO (09:24)
[2024-07-09] MEDS: MAGNESIUM OXIDE 500 MG PO ×2 (09:24→19:49)
[2024-07-09] MEDS: LOW STRENGTH ASPIRIN 81 MG PO (09:24)
[2024-07-09] MEDS: SENOKOT-S 1 TABLET PO (09:24)
--- NOTE | 2024-07-09 09:35 | W.PN.CD ---
Today's Communication / Plan
-
-Start beta-blockers.
-Out of bed to chair
-Incentive spirometry and ambulation.
Impression / Plan
-
Impression/Plan: 69 y/o male with HTN, HLD, NIDDM2, hypothyroidism, hx of concussion/SDH ([facility], 2019), multivessel CAD and a moderately dilated ascending aorta presenting for elective CABG, possible ascending aorta wrap vs. replacement.
#CAD
-Chronic.
-Cath shows 80% ostial/prox LAD, RCA OFFICE ANALYST.
-s/p CABG - x 2 (MARYAN to LAD, greater saphenous vein to PDA), and ascending aortic wrap - with Hemashield graft on 07/08/[address] Huerta, POD #1
-OOB to chair and early ambulation
- ASA/Plavix
- Start Metoprolol today.
#Ascending aorta dilation
-Chronic.
-Pre- op Dilation up to 4.7 cm.
-s/p ascending aortic wrap - with Hemashield graft on 07/08/2024 - post op distal arch is 2.7 cm
#HTN
-Chronic, stable.
-Adjust medications post op.
#HLD
-Chronic, stable.
-Continue high dose, high potency statin.
#NIDDM
-Chronic, stable.
-HbA1c = 6.3%.
-The patient would likely benefit from GLP-1 agonists at discharge.
Subjective/Interval History:
Recovering from post op day 3 1 today. Doing well. Off the pressors support. post op pain.
DATA:
Cardiac Catheterization, 06/17/2024:
CORONARY ANGIOGRAPHY
Dominance: Right.
Left Main: Short without focal stenosis.
LAD: The proximal LAD is highly calcified. There is 80% ostial/proximal LAD stenosis. The remainder of the LAD has mild luminal disease.
Circumflex: There is a small ramus intermedius branch without focal disease. The remainder of the circumflex system has mild luminal irregularities.
RCA: The RCA is severely calcified and occluded in the midportion. There are bridging collaterals faintly supplying the distal vessel and there are well-developed collaterals from the circumflex filling a medium to large PDA and a two medium sized
right posterolateral branches.
TTE, 03/25/2024:
CONCLUSIONS
Normal left ventricular size, wall thickness and systolic function. LV ejection
fraction is 55-60%.
No significant valvular disease.
No significant change since the prior study of 2019.
CT Chest, 06/12/2023:
IMPRESSION:
3 mm left lower lobe nodule is less conspicuous in attenuation, though unchanged in size, consistent with benign etiology.
No new findings.
Stable fusiform aneurysmal dilatation of the ascending aorta, 4.7 cm.
Physical Exam
Vital Signs/Labs
Vital Signs
Temp Pulse Resp BP Pulse Ox
98.8 F 73 16 125/65 96
07/09/24 08:00 07/09/24 09:23 07/09/24 09:00 07/09/24 09:23 07/09/24 09:00
07/08/24 07/09/24 07/10/24
06:59 06:59 06:59
Actual Weight 108.8 kg 109.7 kg
07/09/24 03:09
07/09/24 03:09
PT 17.5 Sec (11.4-14.6) H 07/08/24 12:44
INR 1.46 07/08/24 12:44
APTT 30.4 Sec (23.4-35.0) 07/08/24 12:44
Magnesium 2.1 mg/dl (1.6-2.3) 07/09/24 03:09
Physical Exam
Constitutional: No acute distress and Comfortable
EENT: Anicteric and Moist mucous membranes
Cardiovascular: Rhythm & rate is regular, Pedal edema is absent and JVD pressure is normal
Respiratory: Respiratory effort normal, Wheeze Absent and Crackles Absent
GI: Soft, Flat and Non tender
Neuro/Psych: Alert, Oriented and AO x 3
Other: Skin
Data Reviewed
-
Date of Service: July 09, 2024
Medical Decision Making: Reviewed Test Results and Independent Historian Assessment
EKG: Tracing Personally Visualized and interpreted
Echo: Report Reviewed by me
Labs: Labs Reviewed by me
Old Records: Reviewed
Critical Care Time (in minutes): 31
[2024-07-09 10:02] LABS: Glucose - Point of Care 108 mg/dl (70-99)
--- NOTE | 2024-07-09 10:17 | PTCARENOTE ---
Patient received from road marker resting in bed, AAO X 3. NSR via cm, SaO2 @ 96% on 4lnc. RIJ Cordis w/kvo infusing. Insulin infusing peripherally, titrating per glycemic protocol. Mediastinal chest tubes x 2 (Y-connected to one pleurevac), L
pleural chest tube to separate chamber, both to -20cm suction w/no air leaks noted. Arthur d/c'd this am, DTV. All procedural sites stable. Patient assisted oob to chair, tolerated well. Patient updated to plan of care for the day, in agreement. See
work list for full assessment and interventions performed.
[2024-07-09] MEDS: LASIX 40 MG IV (11:22)
[2024-07-09] MEDS: NSS IV (11:27)
[2024-07-09 12:00] LABS: Glucose - Point of Care 105 mg/dl (70-99)
--- NOTE | 2024-07-09 12:11 | PTCARENOTE ---
VS obtained, assessment stable. Patient remains oob in chair, at bedside for visit. Patient voided independently to urinal.
[2024-07-09 13:06] LABS: Glucose - Point of Care 100 mg/dl (70-99)
[2024-07-09] MEDS: TYLENOL 1000 MG PO ×2 (14:05→21:41)
[2024-07-09] MEDS: ROXICODONE 5 MG PO ×2 (14:40→18:40)
[2024-07-09] MEDS: PACERONE 200 MG PO ×2 (16:45→21:41)
[2024-07-09 18:16] LABS: Glucose - Point of Care 129 mg/dl (70-99)
[2024-07-09] MEDS: LIPITOR 80 MG PO (18:16)
[2024-07-09] MEDS: NOVOLOG FLEXPEN-MODERATE RESISTANCE SC (18:20)
[2024-07-09] MEDS: SENOKOT-S PO (19:49)
--- NOTE | 2024-07-09 20:37 | W.PN.ANS.POP ---
Anesthesia Post Operative
- Anesthesia Post Op Note
Vital Signs Stable-See Nursing Note: Yes
Airway Patent: Yes
Adequate Pain Control: Yes
Change in Mental Status: No
Current Postoperative Nausea & Vomiting: No
Anesthesia Complications: No
General Anesthetic Recall: No
Unplanned Admission: No
Post Op Hydration Adequate: Yes
--- NOTE | 2024-07-09 20:51 | PTCARENOTE ---
Received pt from dayshift RN. Walking rounds completed. Pt AAOx3. MARROQUIN. Following commands appropriately. Pt is SR on the tele monitor. HR 80s. BP stable. Palpable pulses throughout. Pt on 2 L NC. POX 94%. Lung sounds diminished at the base. Deep
breathing and IS encouraged. Mediastinal CTx2 and Left pleural CT to -20 suction, no airleak or tidaling noted, and output WNL. CT dressing CDI. Abdomen round/nontender. +BS. Pt states he is voiding in urinal as needed. All surgical sites stable.
Right IJ cordis and left PIVx1 CDI. Pt repositioned in the chair. See worklist for full nursing assessment and interventions. Call kaufman within reach.
--- NOTE | 2024-07-09 23:32 | PTCARENOTE ---
Pt reassessed. Remains SR on the tele monitor. HR 80s. Pt on 2 L NC. POX 93%. CT assessment unchanged. All surgical sites stable. Pt repositioned in bed. See MAR for pain medication administration. Call kaufman within reach.
[2024-07-10] VITALS (8 sets, daily range): BP systolic 114–138; BP diastolic 67–83; PULSE 82–85; O2SAT 94; BMI 35.0
[2024-07-10] MEDS: ROXICODONE 5 MG PO (03:43)
[2024-07-10 03:51] LABS: Hematocrit 26.8 % (39.0-52.0); Hemoglobin 8.8 g/dL (13.0-18.0); Mean Corp Hgb Conc. 32.8 g/dL (33.0-37.0); Mean Corpuscular Hgb 23.5 pg (27.0-31.0); Mean Corpuscular Volume 71.5 fL (80.0-94.0); Platelet Count 156 10^3/uL (130-400); Red Blood Cell Count 3.75 10^6/uL (4.70-6.10); Red Cell Dist. Width 16.2 % (11.5-14.5); White Blood Cell Count 17.3 10^3/uL (4.8-10.8)
--- NOTE | 2024-07-10 04:00 | PTCARENOTE ---
No acute changes in assessment. Pt SR on the tele monitor. HR 80s. BP stable. CT assessment unchanged from original. Pt on 2 L NC. POX 94%. Pt voided in urinal. Pt repositioned OOB and into the chair. Standing weight obtained. All surgical sites
stable. Labs drawn and sent. See MAR for pain medication administration. Call kaufman within reach.
[2024-07-10 04:14] LABS: Blood Urea Nitrogen 34 mg/dl (9-20); Calcium 8.6 mg/dl (8.4-10.2); Carbon Dioxide 32 mmol/L (22-30); Chloride 101 mmol/L (98-107); Estimated Creatinine Clearance 99 ml/min; Glucose 129 mg/dl (70-99); Magnesium 2.2 mg/dl (1.6-2.3); Potassium 4.6 mmol/L (3.5-5.1); Sodium 137 mmol/L (135-145); eGFR > 60.00
--- NOTE | 2024-07-10 04:59 | W.PN.CT ---
Addendum entered and electronically signed by Ernie Huerta MD 07/10/24 09:11:
I saw and examined the patient.
The PA's note was reviewed and I agree with the note.
Comment:
No events.
D/C CTs today
Diuresis today
OOB/IS/ambulate
Original Note:
Today's Communication / Plan
-
Status post CABG: Continue aspirin high intensity statin and beta-deondre. Sinus rhythm.
Wean oxygen for O2 sats greater than 90%. Remains on 2 L nasal cannula this morning. Unable to take deep breaths due to pain from chest tubes.
Chest x-ray pending. Will review.
Discontinue left pleural chest tube. Will discuss mediastinal chest tubes with Dr. Huerta prior to removal given output.
Passing flatus, negative bowel movement. No further nausea. Belly soft. Continue bowel regimen.
1+ peripheral edema. Weight up. Consider additional diuresis today.
Continue to mobilize. Encourage I-S. Cardiac rehab.
Progressing well and on expected pathway for postop day 2.
Assessment / Plan
-
CABG x 2 with MARYAN to LAD, GSV to PDA, ascending aortic wrap with Hemashield graft on 07/08/[address] Huerta, POD #2
MATTEO: Prebypass LVEF 55% with no regional wall motion normalities, trace MR, trace. Post bypass LVEF 60% with no new regional wall motion abnormalities, trace TR, trace PI, trace AI, no MR
-Thoracic aortic aneurysm
-Coronary artery disease
-Hypertension
-Hyperlipidemia
-Hypothyroidism
-Type 2 diabetes
-Gastroesophageal reflux disease
-Gastritis
-Colon polyps
-HNP C5/6
-Plantar fasciitis
-Concussion
-Subdural hematoma
-Degenerative disc disease
-Diverticulitis
-Bilateral diaphragmatic hernias
-Nephritis
-Alopecia
-4 mm left lower lobe nodule
-Tinnitus
-Acute postoperative blood loss anemia
-Acute postoperative atelectasis
-Acute postoperative pain
-Acute postoperative hypovolemia
-Acute postoperative atelectasis
-Acute postoperative distributive shock now resolved.
Subjective
Procedure
CABG x 2 with MARYAN to LAD, GSV to PDA, ascending aortic wrap with Hemashield graft on 07/08/[address] Huerta, POD #1
MATTEO: Prebypass LVEF 55% with no regional wall motion normalities, trace MR, trace. Post bypass LVEF 60% with no new regional wall motion abnormalities, trace TR, trace PI, trace AI, no MR
-
Date of Service: July 10, 2024
Feels good overall. Still with discomfort at chest tube insertion sites. Slept for about 6 hours comfortably.
Objective Data
-
Lab Results
07/10/24 03:22
07/10/24 03:22
PT 17.5 Sec (11.4-14.6) H 07/08/24 12:44
INR 1.46 07/08/24 12:44
APTT 30.4 Sec (23.4-35.0) 07/08/24 12:44
Vital Signs
Vital Signs
Temp Pulse Resp BP Pulse Ox
97.7 F 87 20 121/67 95
07/10/24 03:40 07/10/24 03:40 07/10/24 03:40 07/10/24 03:40 07/10/24 03:[address] Intake/Output/Weight
07/09/24 07/09/24 07/10/24
06:59 18:59 06:59
Intake Total 167.4 / 419.8 886.1 / 976.1 90 / 976.1
Output Total 695 / 1220 1420 / 2065 645 / 2065
Balance -527.6 / -800.2 -533.9 / -1088.9 -555 / -1088.9
SaO2: 95
Physical Exam
-
General: Awake and Oriented
Cardiovascular: Regular rate & rhythm
Respiratory: Clear and Equal
Sternum: Stable
Incision: Dressing Intact
Extremities: Edema +1
Data Reviewed
-
Lab Results: Results Reviewed
Medications: Active Meds Reviewed
[2024-07-10] MEDS: TYLENOL 1000 MG PO ×3 (06:30→21:51)
[2024-07-10] MEDS: SYNTHROID 112 MCG PO (06:31)
[2024-07-10 07:16] LABS: Glucose - Point of Care 138 mg/dl (70-99)
[2024-07-10] MEDS: NOVOLOG FLEXPEN-MODERATE RESISTANCE SC ×2 (07:17→17:10)
--- NOTE | 2024-07-10 08:08 | PTCARENOTE ---
Patient received from assembler 1st shift resting oob in chair, AAO x 3, states pain controlled at this time. NSR via cm, SaO2 @ 94% on 2lnc. RIJ Cordis w/kvo infusing. Mediastinal chest tubes x 2 (Y-connected to one pleurevac), L pleural chest tube to
seperate chamber, both to -20cm suction, no air leaks noted. All procedural sites stable. Patient updated to plan of care for the day, in agreement. See work list for full assessment and interventions performed.
--- NOTE | 2024-07-10 08:20 | W.PN.CD ---
Today's Communication / Plan
-
-Continue supportive routine postop care.
Impression / Plan
-
Impression/Plan: 69 y/o male with HTN, HLD, NIDDM2, hypothyroidism, hx of concussion/SDH (, 2019), multivessel CAD and a moderately dilated ascending aorta presenting for elective CABG, possible ascending aorta wrap vs. replacement.
#CAD
-Chronic.
-Cath shows 80% ostial/prox LAD, RCA CLINICAL DOCUMENT IMPROVEMENT EDUCATOR.
-s/p CABG - x 2 (MARYAN to LAD, greater saphenous vein to PDA), and ascending aortic wrap - with Hemashield graft on 07/08/[address] Huerta, POD #2
-OOB to chair and early ambulation
- ASA/Plavix
- on Metoprolol today.
-Chest tubes are removed.
#Ascending aorta dilation
-Chronic.
-Pre- op Dilation up to 4.7 cm.
-s/p ascending aortic wrap - with Hemashield graft on 07/08/2024 - post op distal arch is 2.7 cm
#HTN
-Chronic, stable.
-Adjust medications post op.
#HLD
-Chronic, stable.
-Continue high dose, high potency statin.
#NIDDM
-Chronic, stable.
-HbA1c = 6.3%.
-The patient would likely benefit from GLP-1 agonists at discharge.
Subjective/Interval History:
Recovering from post op day #2 today. Doing well.
DATA:
Cardiac Catheterization, 06/17/2024:
CORONARY ANGIOGRAPHY
Dominance: Right.
Left Main: Short without focal stenosis.
LAD: The proximal LAD is highly calcified. There is 80% ostial/proximal LAD stenosis. The remainder of the LAD has mild luminal disease.
Circumflex: There is a small ramus intermedius branch without focal disease. The remainder of the circumflex system has mild luminal irregularities.
RCA: The RCA is severely calcified and occluded in the midportion. There are bridging collaterals faintly supplying the distal vessel and there are well-developed collaterals from the circumflex filling a medium to large PDA and a two medium sized
right posterolateral branches.
TTE, 03/25/2024:
CONCLUSIONS
Normal left ventricular size, wall thickness and systolic function. LV ejection
fraction is 55-60%.
No significant valvular disease.
No significant change since the prior study of 2019.
CT Chest, 06/12/2023:
IMPRESSION:
3 mm left lower lobe nodule is less conspicuous in attenuation, though unchanged in size, consistent with benign etiology.
No new findings.
Stable fusiform aneurysmal dilatation of the ascending aorta, 4.7 cm.
Physical Exam
Vital Signs/Labs
Vital Signs
Temp Pulse Resp BP Pulse Ox
98.6 F 87 18 126/69 94
07/10/24 08:06 07/10/24 08:06 07/10/24 08:06 07/10/24 07:57 07/10/24 08:08
07/09/24 07/10/24 07/11/24
06:59 06:59 06:59
Actual Weight 109.7 kg 110.8 kg
07/10/24 03:22
07/10/24 03:22
PT 17.5 Sec (11.4-14.6) H 07/08/24 12:44
INR 1.46 07/08/24 12:44
APTT 30.4 Sec (23.4-35.0) 07/08/24 12:44
Magnesium 2.2 mg/dl (1.6-2.3) 07/10/24 03:22
Physical Exam
Constitutional: No acute distress and Comfortable
EENT: Anicteric and Moist mucous membranes
Cardiovascular: Rhythm & rate is regular, Pedal edema is absent and JVD pressure is normal
Respiratory: Respiratory effort normal, Lungs clear to auscul. and Crackles Absent
GI: Soft, Non tender and Normal bowel sounds
Neuro/Psych: Alert, Oriented and AO x 3
Other: Cath Site
Data Reviewed
-
Date of Service: July 10, 2024
Medical Decision Making: Reviewed Test Results, Independent Historian Assessment, Test Interpretation and Review of Case with other Provider
EKG: Tracing Personally Visualized and interpreted
Echo: Report Reviewed by me
Labs: Labs Reviewed by me
Old Records: Reviewed
[2024-07-10] MEDS: Pyridium 200 MG PO ×2 (08:30→16:24)
[2024-07-10] MEDS: LIDOCAINE 4% PATCH 1 PATCH TOPICAL (08:30)
[2024-07-10] MEDS: LOPRESSOR 12.5 MG PO (08:31)
[2024-07-10] MEDS: PLAVIX 75 MG PO (08:31)
[2024-07-10] MEDS: PROTONIX 40 MG PO (08:31)
[2024-07-10] MEDS: DIAMOX 250 MG PO (08:31)
[2024-07-10] MEDS: LOW STRENGTH ASPIRIN 81 MG PO (08:31)
[2024-07-10] MEDS: SENOKOT-S 1 TABLET PO ×2 (08:31→20:23)
[2024-07-10] MEDS: MAGNESIUM OXIDE 500 MG PO ×2 (08:31→20:23)
[2024-07-10] MEDS: NEURONTIN 100 MG PO ×3 (08:32→21:51)
[2024-07-10] MEDS: BACTROBAN 2% OINTMENT 1 APPLIC NASAL ×2 (08:32→20:23)
[2024-07-10] MEDS: PACERONE 200 MG PO ×3 (08:32→21:52)
[2024-07-10] MEDS: CARAFATE PO (08:38)
--- NOTE | 2024-07-10 09:30 | PTCARENOTE ---
Chest tubes d/c'd as ordered w/RN assist. Patient tolerated well. Assisted back oob to chair, to bedside.
[2024-07-10] MEDS: FLEXERIL 5 MG PO (10:19)
[2024-07-10 10:30] LABS: Urine Albumin Negative (Neg - Trace); Urine Bilirubin Negative (Negative); Urine Character Clear (Clear); Urine Color Yellow; Urine Glucose 2+ (Negative); Urine Ketone Negative (Negative); Urine Leukocyte Negative (Negative); Urine Nitrite Negative (Negative); Urine Occult Blood Negative (Negative); Urine Specific Gravity 1.015 (<1.030); Urine Urobilinogen Negative (Neg - 1+)
--- NOTE | 2024-07-10 12:01 | PTCARENOTE ---
VS obtained, assessment stable. Patient resting oob in chair, perusing menu, denies pain. Visitors at bedside.
[2024-07-10 12:22] LABS: Glucose - Point of Care 159 mg/dl (70-99)
[2024-07-10] MEDS: NOVOLOG FLEXPEN-MODERATE RESISTANCE 1 UNITS SC (12:22)
[2024-07-10] MEDS: NSS 500 IV (15:03)
--- NOTE | 2024-07-10 16:32 | PTCARENOTE ---
VS obtained, assessment unchanged. Standby assist to ambulate in ivory approximately 200 feet, patient tolerated well. at bedside for visit.
[2024-07-10 17:10] LABS: Glucose - Point of Care 144 mg/dl (70-99)
[2024-07-10] MEDS: LIPITOR 80 MG PO (17:10)
[2024-07-10] MEDS: CARAFATE 1 GRAM PO (17:10)
[2024-07-10] MEDS: LOPRESSOR 25 MG PO (20:23)
--- NOTE | 2024-07-10 21:00 | PTCARENOTE ---
Assumed care of pt from dayshift RN. Walking rounds completed. Pt AAOx3. Pt SR on the tele monitor. HR 79-80s. BP stable. Palpable pulses throughout. Pt on 1 L NC. POX 94%. Lung sounds diminished at the bases. Deep breathing and IS encouraged. CT
dressing changed. Abdomen round/nontender. Pt c/o 'full feeling.' +Flatus. No BM. No nausea. Voiding in urinal as needed. Pt states burning feeling while urinating has subsided. All surgical sites stable. Right IJ cordis and PIVx1 CDI. No c/o pain
at this time. See worklist for full nursing assessment and interventions. Call kaufman within reach.
[2024-07-10] MEDS: MAALOX PLUS 1 TABLET PO (22:35)
[2024-07-11] VITALS (23 sets, daily range): BP systolic 51–129; BP diastolic 23–79; PULSE 80; O2SAT 91; BMI 34.9
[2024-07-11] MEDS: Pyridium PO (00:06)
--- NOTE | 2024-07-11 00:11 | PTCARENOTE ---
No acute changes in assessment. Pt SR on the tele monitor. HR 80s. BP stable. Pt on 1 L NC. POX 95%. All surgical sites stable. Pt resting in chair at this time. Pt given Maalox Plus tablet for gas/stomach discomfort - see MAR. Voiding in the
urinal when needed. Pt states burning sensation while peeing has resolved. Pt refused 0000 dose of Pyridium - see MAR. Call kaufman within reach.
--- NOTE | 2024-07-11 03:24 | PTCARENOTE ---
No acute changes in assessment. Pt SR on the tele monitor. HR 70s. BP 111/79. Pt remains on 1 L NC. POX 93-94%. All surgical sites stable. Pt voided in urinal. Pt repositioned in the chair. Labs drawn and sent. No c/o pain at this time. Call kaufman
within reach.
[2024-07-11 03:29] LABS: Hematocrit 27.8 % (39.0-52.0); Mean Corp Hgb Conc. 32.4 g/dL (33.0-37.0); Mean Corpuscular Hgb 23.3 pg (27.0-31.0); Mean Corpuscular Volume 71.8 fL (80.0-94.0); Mean Platelet Volume 10.8 fL (7.4-10.4); Platelet Count 156 10^3/uL (130-400); Red Blood Cell Count 3.87 10^6/uL (4.70-6.10); Red Cell Dist. Width 16.4 % (11.5-14.5); White Blood Cell Count 12.2 10^3/uL (4.8-10.8)
[2024-07-11 03:51] LABS: Blood Urea Nitrogen 21 mg/dl (9-20); Calcium 8.8 mg/dl (8.4-10.2); Carbon Dioxide 26 mmol/L (22-30); Chloride 103 mmol/L (98-107); Estimated Creatinine Clearance 99 ml/min; Glucose 141 mg/dl (70-99); Magnesium 2.4 mg/dl (1.6-2.3); Potassium 4.4 mmol/L (3.5-5.1); Sodium 135 mmol/L (135-145); eGFR > 60.00
--- NOTE | 2024-07-11 05:25 | W.PN.CT ---
Today's Communication / Plan
-
-pod #3
-no significant issues overnight
-in nsr. Brief 10 beat SVT overnight- on Lopressor 25 bid
-diuresed well with Diamox 07/10 (uo 1250/2850 in 12/24 hrs)
-Pyridium for urinary burning. UO without signs of infection, 2+ glucose - follow
-current meds (ASA, Plavix, Lipitor, Lopressor, Amio, Protonix, Carafate)
-encourage IS, OOB
Assessment / Plan
-
CABG x 2 with MARYAN to LAD, GSV to PDA, ascending aortic wrap with Hemashield graft on 07/08/[address] Huerta, POD #3
MATTEO: Prebypass LVEF 55% with no regional wall motion normalities, trace MR, trace. Post bypass LVEF 60% with no new regional wall motion abnormalities, trace TR, trace PI, trace AI, no MR
-Thoracic aortic aneurysm
-Coronary artery disease
-Hypertension
-Hyperlipidemia
-Hypothyroidism
-Type 2 diabetes
-Gastroesophageal reflux disease
-Gastritis
-Colon polyps
-HNP C5/6
-Plantar fasciitis
-Concussion
-Subdural hematoma
-Degenerative disc disease
-Diverticulitis
-Bilateral diaphragmatic hernias
-Nephritis
-Alopecia
-4 mm left lower lobe nodule
-Tinnitus
-Acute postoperative blood loss anemia
-Acute postoperative atelectasis
-Acute postoperative pain
-Acute postoperative hypovolemia with subsequent hypervolemia
-Acute postoperative atelectasis
-Acute postoperative distributive shock- now resolved.
Discussed patient care with: Nursing and Care Team
Subjective
Procedure
CABG x 2 with MARYAN to LAD, GSV to PDA, ascending aortic wrap with Hemashield graft on 07/08/[address] Huerta, POD #1
MATTEO: Prebypass LVEF 55% with no regional wall motion normalities, trace MR, trace. Post bypass LVEF 60% with no new regional wall motion abnormalities, trace TR, trace PI, trace AI, no MR
-
Date of Service: July 11, 2024
Objective Data
-
PT 17.5 Sec (11.4-14.6) H 07/08/24 12:44
INR 1.46 07/08/24 12:44
APTT 30.4 Sec (23.4-35.0) 07/08/24 12:44
Vital Signs
Vital Signs
Temp Pulse Resp BP Pulse Ox
99.1 F 86 16 122/72 93
07/11/24 00:01 07/11/24 00:01 07/11/24 00:01 07/11/24 00:01 07/11/24 00:01
CT Intake/Output/Weight
07/10/24 07/10/24 07/11/24
06:59 18:59 06:59
Intake Total 90 / 976.1 770 / 820 50 / 820
Output Total 645 / 2065 1600 / 2550 950 / 2550
Balance -555 / -1088.9 -830 / -1730 -900 / -1730
SaO2: 93
Physical Exam
-
General: Awake and AOx3
Cardiovascular: Regular rate & rhythm, No Murmurs and No Rub
Respiratory: Decreased Breath Sounds
Sternum: Stable
Incision: Clean, Dry and Dressing Intact
Extremities: No Edema
Abdomen: soft, nontender, nondistended, + bowel sounds. Pt feels 'full' after eating little meal
Data Reviewed
-
Lab Results: Results Reviewed
Medications: Active Meds Reviewed
Chest X-Ray: Report Reviewed and Image Reviewed
ECG: Report Reviewed and Image Reviewed
--- NOTE | 2024-07-11 07:00 | PTCARENOTE ---
Bedside walking rounds report received. Patient seen on rounds oob in chair on room air. Pulse ox sats on room air 90 to 91%. IS encouraged hourly to 1250ml x 10 reps Q hour. Patient is awake alert and oriented x 3. Denies pain, except with
productive cough. NSR. Normotensive. See flowrecord for remaining assessments.
[2024-07-11] MEDS: TYLENOL 1000 MG PO ×2 (07:25→22:23)
[2024-07-11] MEDS: SYNTHROID 112 MCG PO (07:25)
[2024-07-11] MEDS: NOVOLOG FLEXPEN-MODERATE RESISTANCE SC ×2 (07:36→17:40)
[2024-07-11 07:38] LABS: Glucose - Point of Care 127 mg/dl (70-99)
--- NOTE | 2024-07-11 08:34 | W.PN.CD ---
Today's Communication / Plan
-
Increase activity
Impression / Plan
-
Impression/Plan: 69 y/o male with HTN, HLD, NIDDM2, hypothyroidism, hx of concussion/SDH (, 2019), multivessel CAD and a moderately dilated ascending aorta presenting for elective CABG, possible ascending aorta wrap vs. replacement.
#CAD
-Chronic.
-Cath shows 80% ostial/prox LAD, RCA IMAGING TECH.
-s/p CABG - x 2 (MARYAN to LAD, greater saphenous vein to PDA), and ascending aortic wrap - with Hemashield graft on 07/08/[address] Huerta, POD #2
- ASA/Plavix
-increase activity
#Ascending aorta dilation
-Chronic.
-Pre- op Dilation up to 4.7 cm.
-s/p ascending aortic wrap - with Hemashield graft on 07/08/2024 - post op distal arch is 2.7 cm
#HTN
-Chronic, stable.
-Adjust medications post op.
#HLD
-Chronic, stable.
-Continue high dose, high potency statin.
#NIDDM
-Chronic, stable.
-HbA1c = 6.3%.
-The patient would likely benefit from GLP-1 agonists at discharge.
Subjective/Interval History:
Recovering from post op day #3 today. Doing very well and feels better every day
DATA:
Cardiac Catheterization, 06/17/2024:
CORONARY ANGIOGRAPHY
Dominance: Right.
Left Main: Short without focal stenosis.
LAD: The proximal LAD is highly calcified. There is 80% ostial/proximal LAD stenosis. The remainder of the LAD has mild luminal disease.
Circumflex: There is a small ramus intermedius branch without focal disease. The remainder of the circumflex system has mild luminal irregularities.
RCA: The RCA is severely calcified and occluded in the midportion. There are bridging collaterals faintly supplying the distal vessel and there are well-developed collaterals from the circumflex filling a medium to large PDA and a two medium sized
right posterolateral branches.
TTE, 03/25/2024:
CONCLUSIONS
Normal left ventricular size, wall thickness and systolic function. LV ejection
fraction is 55-60%.
No significant valvular disease.
No significant change since the prior study of 2019.
CT Chest, 06/12/2023:
IMPRESSION:
3 mm left lower lobe nodule is less conspicuous in attenuation, though unchanged in size, consistent with benign etiology.
No new findings.
Stable fusiform aneurysmal dilatation of the ascending aorta, 4.7 cm.
Physical Exam
Vital Signs/Labs
Vital Signs
Temp Pulse Resp BP Pulse Ox
98.9 F 81 18 111/79 93
07/11/24 03:14 07/11/24 03:14 07/11/24 03:14 07/11/24 03:14 07/11/24 03:14
07/10/24 07/11/24 07/12/24
06:59 06:59 06:59
Actual Weight 244 lb 4.355 oz 243 lb 2.718 oz
07/11/24 03:19
07/11/24 03:19
PT 17.5 Sec (11.4-14.6) H 07/08/24 12:44
INR 1.46 07/08/24 12:44
APTT 30.4 Sec (23.4-35.0) 07/08/24 12:44
Magnesium 2.4 mg/dl (1.6-2.3) H 07/11/24 03:19
Physical Exam
Constitutional: No acute distress and Comfortable
Cardiovascular: Rhythm & rate is regular, S1S2 is normal and Murmur/rub/gallop absent
Respiratory: Respiratory effort normal, Lungs clear to auscul. and Crackles Absent
GI: Non tender
Neuro/Psych: AO x 3 and Motor deficits absent
Data Reviewed
-
Date of Service: July 11, 2024
[2024-07-11] MEDS: LASIX 40 MG IV (08:46)
[2024-07-11] MEDS: LOPRESSOR 25 MG PO (08:47)
[2024-07-11] MEDS: LIDOCAINE 4% PATCH 1 PATCH TOPICAL (08:48)
[2024-07-11] MEDS: LOW STRENGTH ASPIRIN 81 MG PO (08:48)
[2024-07-11] MEDS: Pyridium 200 MG PO ×2 (08:49→16:09)
[2024-07-11] MEDS: NEURONTIN 100 MG PO ×3 (08:49→22:23)
[2024-07-11] MEDS: PROTONIX 40 MG PO (08:50)
[2024-07-11] MEDS: PACERONE 200 MG PO ×2 (08:50→16:09)
[2024-07-11] MEDS: PLAVIX 75 MG PO (08:50)
[2024-07-11] MEDS: CARAFATE 1 GRAM PO ×3 (08:50→22:23)
[2024-07-11] MEDS: MAGNESIUM OXIDE 500 MG PO ×2 (08:50→20:26)
[2024-07-11] MEDS: SENOKOT-S 1 TABLET PO ×2 (08:50→20:26)
[2024-07-11] MEDS: BACTROBAN 2% OINTMENT 1 APPLIC NASAL ×2 (08:51→20:26)
--- NOTE | 2024-07-11 11:15 | PTCARENOTE ---
Patient is slightly lightheaded and mildly diaphoretic with cardiac rehab session. BP sitting systolic 88mmhg and standing was 58mmhg: sat down in chair immediately and legs elevated: systolic BP's in the low 100's. Marissa, CT surgery aware of
above events: new orders received. Diuresing from lasix IV this am. Continue to monitor. NSR
[2024-07-11] MEDS: NSS IV (12:08)
[2024-07-11] MEDS: NOVOLOG FLEXPEN-MODERATE RESISTANCE 1 UNITS SC (12:29)
[2024-07-11] MEDS: ProAmatine 5 MG PO ×2 (12:30→17:41)
[2024-07-11 12:37] LABS: Glucose - Point of Care 153 mg/dl (70-99)
[2024-07-11] MEDS: TYLENOL PO (13:30)
--- NOTE | 2024-07-11 16:00 | PTCARENOTE ---
After patient stood to get back back to bed: BP standing was 77/54 and sitting systolic was 105. Marissa AUDIOPROSTHOLOGIST aware of orthostasis. New orders received. Will dc right ij cordis once back in bed.
--- NOTE | 2024-07-11 16:15 | PTCARENOTE ---
Right IJ cordis and sutures dc while patient in bed. Patent then in bathroom and did have a BM. No arrhythmias.
[2024-07-11] MEDS: LIPITOR 80 MG PO (17:41)
[2024-07-11 17:44] LABS: Glucose - Point of Care 148 mg/dl (70-99)
[2024-07-11] MEDS: PACERONE 400 MG PO (20:25)
--- NOTE | 2024-07-11 20:30 | PTCARENOTE ---
Patient received OOB in chair watching television. Family at bedside. Patient A+A+Ox3. No neurological deficits noted. No c/o headache, dizziness or lightheadedness. Room air. SaO2 92%. Chest tube dressing intact. Sinus Rhythm. Heart rate
90's. Patient with no c/o chest pain, pressure or discomfort. Normoactive bowel sounds. No BM. Positive flatus. No c/o nausea. No vomiting. Voiding without difficulty - [place] colored urine - Patient on Pyridium. No c/o urinary pain,
discomfort or spasms. Positive, palpable pulses. Assessment as documented.
[2024-07-11] MEDS: CALCIUM GLUCONATE 100 IV (21:59)
[2024-07-11 22:52] LABS: Glucose - Point of Care 139 mg/dl (70-99)
--- NOTE | 2024-07-11 23:00 | PTCARENOTE ---
Patient assisted to bed with assist x1 without difficulty. No c/o headache, dizziness or lightheadedness. Per PA orders (Timothy Fair PA-C) Amiodarone 400 mg PO given and Calcium Gluconate 1 gram/100 ml at 200 ml/hr administered without
difficulty. New #20P peripheral IV site placed - Right wrist region without difficulty. Patient resting in bed. No c/o pain or discomfort. Sternal Aquacell dressing intact. Chest tube dressing intact. Right groin puncture site intact.
Positive, palpable pulses. Patient with no c/o back or flank pain. Assessment as documented.
[2024-07-12] VITALS (11 sets, daily range): BP systolic 113–147; BP diastolic 72–93; PULSE 94; O2SAT 94–95; BMI 34.6
[2024-07-12] MEDS: Pyridium PO ×2 (00:11→09:09)
--- NOTE | 2024-07-12 00:30 | PTCARENOTE ---
Patient sleeping without difficulty. No further changes from previous assessment.
--- NOTE | 2024-07-12 05:15 | SUR.OPER ---
Patient A+A+Ox3. No neurological deficits noted. No c/o headache, dizziness or lightheadedness. No c/o pain or discomfort. Room air. SaO2 93%. Sinus Rhythm. Heart rate 80's. Blood pressure 129/78 (93). AM lab work collected and sent.
Patient given CHG bath and linens changed. OOB to standing scale (109.5 kg) then chair without difficulty. Assessment/Interventions as documented.
--- NOTE | 2024-07-12 05:20 | W.PN.CT ---
Today's Communication / Plan
-
-No major issues overnight. Hemodynamically and neurologically intact
-Had postop orthostasis and required 2 doses of Midodrine yesterday. Midodrine currently on hold, Lopressor decreased and switched to Toporol XL 12.5 BID, held last night
-No further orthostasis when OOB this AM, will assess with ambulation in the halls
-Postop dysuria has resolved, u/a negative
-Cont. current meds (ASA, Plavix, Lipitor, Lopressor-switched to Toprol XL, Amio, Protonix, Carafate)
-F/u 2-view cxr
-Encourage use of IS
-F/U AM labs, pending
-Home today if no issues with ambulation
Assessment / Plan
-
CABG x 2 with MARYAN to LAD, GSV to PDA, ascending aortic wrap with Hemashield graft on 07/08/[address] Huerta, POD #4
MATTEO: Prebypass LVEF 55% with no regional wall motion normalities, trace MR, trace. Post bypass LVEF 60% with no new regional wall motion abnormalities, trace TR, trace PI, trace AI, no MR
-Thoracic aortic aneurysm
-Coronary artery disease
-Hypertension
-Hyperlipidemia
-Hypothyroidism
-Type 2 diabetes
-Gastroesophageal reflux disease
-Gastritis
-Colon polyps
-HNP C5/6
-Plantar fasciitis
-Concussion
-Subdural hematoma
-Degenerative disc disease
-Diverticulitis
-Bilateral diaphragmatic hernias
-Nephritis
-Alopecia
-4 mm left lower lobe nodule
-Tinnitus
-Acute postoperative blood loss anemia
-Acute postoperative atelectasis
-Acute postoperative pain
-Acute postoperative hypovolemia with subsequent hypervolemia
-Acute postoperative atelectasis
-Acute postoperative distributive shock- now resolved
-Acute postop orthostasis
-Acute postop dysuria, u/a negative
Discussed patient care with: Cardiology, Nursing, Respiratory Therapy, Pharmacy and Care Team
Subjective
Procedure
CABG x 2 with MARYAN to LAD, GSV to PDA, ascending aortic wrap with Hemashield graft on 07/08/[address] Huerta, POD #1
MATTEO: Prebypass LVEF 55% with no regional wall motion normalities, trace MR, trace. Post bypass LVEF 60% with no new regional wall motion abnormalities, trace TR, trace PI, trace AI, no MR
-
Date of Service: July 12, 2024
Pt c/o mild incisional pain, otherwise feels well. Wants to go home
Objective Data
-
PT 17.5 Sec (11.4-14.6) H 07/08/24 12:44
INR 1.46 07/08/24 12:44
APTT 30.4 Sec (23.4-35.0) 07/08/24 12:44
Vital Signs
Vital Signs
Temp Pulse Resp BP Pulse Ox
98.8 F 102 16 112/75 93
07/11/24 22:55 07/12/24 01:20 07/11/24 22:55 07/11/24 22:55 07/11/24 22:55
CT Intake/Output/Weight
07/11/24 07/11/24 07/12/24
06:59 18:59 06:59
Intake Total 80 / 850 1115 / 1455 340 / 1455
Output Total 1500 / 3100 1500 / 2275 775 / 2275
Balance -1420 / -2250 -385 / -820 -435 / -820
SaO2: 93 (RA)
Physical Exam
-
General: Awake, Oriented and AOx3
Cardiovascular: Regular rate & rhythm, No Murmurs, No Rub and No Gallop
Respiratory: Decreased Breath Sounds (at bases, otherwise clear)
Sternum: Stable
Incision: Clean, Dry, Intact and Dressing Intact
Extremities: No Edema
Data Reviewed
-
Lab Results: Results Reviewed
Medications: Active Meds Reviewed
Chest X-Ray: Report Reviewed and Image Reviewed
ECG: Report Reviewed and Image Reviewed
[2024-07-12] MEDS: TYLENOL 1000 MG PO ×2 (05:35→13:41)
[2024-07-12] MEDS: SYNTHROID 112 MCG PO (05:35)
[2024-07-12 05:38] LABS: Hematocrit 27.2 % (39.0-52.0); Mean Corp Hgb Conc. 33.1 g/dL (33.0-37.0); Mean Corpuscular Hgb 23.4 pg (27.0-31.0); Mean Corpuscular Volume 70.8 fL (80.0-94.0); Mean Platelet Volume 10.4 fL (7.4-10.4); Platelet Count 168 10^3/uL (130-400); Red Blood Cell Count 3.84 10^6/uL (4.70-6.10); Red Cell Dist. Width 16.3 % (11.5-14.5)
[2024-07-12 05:59] LABS: Blood Urea Nitrogen 19 mg/dl (9-20); Calcium 8.9 mg/dl (8.4-10.2); Carbon Dioxide 25 mmol/L (22-30); Chloride 103 mmol/L (98-107); Estimated Creatinine Clearance 99 ml/min; Glucose 115 mg/dl (70-99); Magnesium 2.1 mg/dl (1.6-2.3); Potassium 4.1 mmol/L (3.5-5.1); Sodium 136 mmol/L (135-145); eGFR > 60.00
--- NOTE | 2024-07-12 08:10 | PTCARENOTE ---
pt received from previous RN, oriented, OOB in chair. SR on the monitor, HR 80-90s. SBP 110s. palpable pulses. pt on RA, 94% POX. lungs diminished in bases. IS encouraged. pt abdomen s/n, +BS. pt states had BM yesterday. voids. pt ambulates w/ stand
by. sternal Aquacel intact. chest tube sutures in place, c/d/i. R groin intact. R knee incision c/d/i. PIV. see worklist for VS, I&O, and assessment.
[2024-07-12] MEDS: NOVOLOG FLEXPEN-MODERATE RESISTANCE SC ×2 (08:46→13:05)
[2024-07-12] MEDS: ProAmatine PO (09:05)
[2024-07-12] MEDS: PLAVIX 75 MG PO (09:06)
[2024-07-12] MEDS: TOPROL XL 12.5 MG PO (09:06)
[2024-07-12] MEDS: PROTONIX 40 MG PO (09:06)
[2024-07-12] MEDS: LOW STRENGTH ASPIRIN 81 MG PO (09:06)
[2024-07-12] MEDS: SENOKOT-S 1 TABLET PO (09:07)
[2024-07-12] MEDS: BACTROBAN 2% OINTMENT 1 APPLIC NASAL (09:07)
[2024-07-12] MEDS: NEURONTIN 100 MG PO (09:07)
[2024-07-12] MEDS: MAGNESIUM OXIDE 500 MG PO (09:07)
[2024-07-12] MEDS: LIDOCAINE 4% PATCH TOPICAL (09:08)
--- NOTE | 2024-07-12 10:36 | W.DCSUMMARY ---
Discharge Summary
Discharge Data
Date of Admission: 07/08/24
Date of Discharge: 07/12/24
Total time spent discharging patient (in min): 45
-
Pending Results: No
Hospital Course
Primary care physician:
Dr. Bradley Turner
Outpatient reducing salon attendant:
Dr Ortez
Inpatient consultants:
CBC, shampoo assistant
Procedures:
1. CABG x 2 (MARYAN to LAD, GSV to PDA)and Ascending aortic wrap w/ hemashield graft.
Primary Diagnosis:
1. Multivessel coronary artery disease
Secondary Diagnoses:
1. Enlarged ascending aorta
2. Hypertension
3. Hyperlipidemia
4. Hypothyroidism
5. Diabetes mellitus type 2
6. 4 mm pulmonary nodule on the left lower lobe
7. Acute postoperative blood loss anemia
8. Acute postoperative atelectasis
9. Acute postoperative pain
HPI: 69-year-old male seen in the office by Dr. Huerta presented electively on 07/08 for a coronary artery bypass and ascending aortic graft placement.
Hospital course: Patient presented electively on 07/08. Postoperatively he returned to the CVICU on Levophed, insulin, and Precedex infusions. Precedex was weaned off and patient was extubated by 1714. On 07/09 postoperative day #1, Reglan was
given for nausea. Patient was declined and Arthur catheter was removed. He was transition to sliding scale insulin and transferred to telemetry status. He was given 40 mg of IV Lasix and diuresed well. On 07/10 postoperative day #2, patient
complained of burning during urination and Pyridium was started. Chest tubes were removed. Patient was diuresed with Diamox and Lopressor was started. On 07/11 postoperative day #3, patient had a small left pleural effusion and was diuresed with
40 mg of IV Lasix. Patient had positive tilts, therefore Lopressor was decreased to 12.5 mg of Toprol and midodrine was added. On 07/12 postoperative day #4, patient was tolerating metoprolol dose. Midodrine was discontinued. Patient worked with
physical therapy and was deemed stable for discharge. All his prescriptions were sent to his preferred pharmacy.
Home medication changes:
See below
Discharge Plan
-
Patient Disposition: Home (Routine Discharge)
Discharge Diagnosis/Procedures: ascending aortic aneurysm/CAD>Ascending Ao Hemashield wrap & CABG
Condition: Good
Diet: Low Cholesterol and Low Sodium
Activity: No strenuous activity
Driving Restrictions: Not until seen by your Dr
Bathing Restrictions: OK to Shower
Other Services: Cardiac Rehab
Specialty Instructions: Weigh Daily- Call MD for wt gain/loss 3 lbs overnight/5 lbs in 1 week
Activity Restrictions/Additional Instructions:
Cardiac Rehab Orientation Appointment at made for Thursday, August 15 at 1pm.
[facility] Cardiac Rehab phone number: [phone]
ACTIVITY:
-No strenuous activity: no heavy lifting, pushing, pulling anything over 15 pounds for one month
-continue to use stairs as tolerated
DRIVING RESTRICTIONS:
-No driving for one month or until approved by your surgeon
WOUND CARE:
-Shower daily. Use soap & water.
-No lotions, creams or powders on incision area.
DIET:
-continue a low fat/low cholesterol diet.
-IF you are diabetic, continue carb controlled diet.
CARDIAC REHAB:
-Please make appointment to start in 5-6 weeks with your local hospital program. (See Cardiac Rehabilitation Discharge Booklet).
SPECIALTY INSTRUCTIONS:
-Weigh yourself daily. Call your physician for any weight gain/loss of 3 lbs overnight or 5 lbs in one week.
-REPORT any clicking noise or uneven appearance of your sternum to your surgeon immediately.
-If you smoke, you are instructed to quit. The [place] smoking hotline phone number is [phone]
Referrals:
CT Transitional Care Nurse [Outside]
(
The Cardiothoracic Transitional Care Nurse will call you to set up a visit in 1-2 days.)
[facility]. Cardiac Rehab [Outside] - 08/15/24 1:00 pm
(Cardiac Rehab Orientation appointment is on August 15 at 1pm.
The Cardiac Rehab gym is located on the first floor of the [facility].)
Margarette Colbert CRNP [Specified Professional Personl] - 08/30/24 10:00 am
Bradley Turner MD [Family Provider] -
Portillo Mckenzie MD [Active] - in one to two months
Ernie Huerta MD [Active] - 08/09/24 2:00 pm
Prescriptions:
New
acetaminophen 325 mg Tablet
650 mg PO Q4HPRN PRN (Reason: mild pain,headache,temp >101F ) Qty: 0 0RF
cyclobenzaprine 10 mg Tablet
5 mg PO Q8HPRN PRN (Reason: muscle spasm) Qty: 30 0RF
clopidogrel 75 mg Tablet
75 mg PO DAILY Qty: 90 0RF
pantoprazole 40 mg Tablet,Delayed Release (Dr/Ec)
40 mg PO DAILY Qty: 90 0RF
gabapentin 100 mg Capsule
100 mg PO TID Qty: 30 0RF
metoprolol succinate 25 mg Tablet Extended Release 24 Hr
12.5 mg PO BID Qty: 90 0RF
oxycodone 5 mg Tablet
2.5 mg PO Q4HPRN PRN (Reason: severe pain) Qty: 10 0RF
Continued
valacyclovir 500 MG tablet
500 mg PO DAILY PRN (Reason: cold sores)
aspirin [Ecotrin Low Strength] 81 MG tablet,delayed release (DR/EC)
81 mg PO DAILY
esomeprazole magnesium 20 mg Capsule,Delayed Release(Dr/Ec)
20 mg PO QPM
atorvastatin [Lipitor] 80 mg Tablet
80 mg PO QPM
sucralfate 1 gram Tablet
1 g PO BID
Rx Instructions:
NOON & PM
levothyroxine 112 mcg Tablet
112 mcg PO DAILY
Discontinued
omeprazole 20 MG capsule,delayed release(DR/EC)
20 mg PO DAILY
metoprolol succinate [Toprol XL] 25 mg Tablet Extended Release 24 Hr
25 mg PO QPM
losartan 100 mg Tablet
100 mg PO DAILY
nitroglycerin 0.4 mg tablet, sublingual
0.4 mg sublingual [id number] PRN (Reason: chest pain) Qty: 25 5RF
Care Plan Goals
Care Plan Goals:
Problem: Readiness for enhanced knowledge related to diagnosis and treatment plan
Goal: Understand your diagnosis and treatment plan needs, including medications if applicable.
Instructions: Know your diagnosis, underlying causes and treatment plan options, including medications if applicable. Consult with your health care team to learn about your diagnosis and treatment plan, including medications if applicable.
Discharge Date and Time
Print Language: [place]
[2024-07-12] MEDS: NSS IV (12:07)
[2024-07-12] MEDS: CARAFATE 1 GRAM PO (12:10)
--- NOTE | 2024-07-12 12:15 | PTCARENOTE ---
pt VSS, no changes in assessment. pt denies lightheadedness or dizziness. pt ambulated in hallway w/ CR, completed stairs.
[2024-07-12 13:04] LABS: Glucose - Point of Care 118 mg/dl (70-99)
--- NOTE | 2024-07-12 14:40 | PTCARENOTE ---
discharge instructions reviewed w/ patient and . home meds reviewed. questions answered. IV and tele dc'd. surgical dressings removed. pt showered independently. dressed self. pt left w/ all belongings via wheelchair w/ volunteer.
== END 2024-07-12 14:30 | disposition home or self-care (01) | DRG 235 ==
LOC: CVICU 05:20
PROVIDERS: Anesthesiology; Nurse Practitioner; Physician Assistant Medical; ADMITTING PHYSICIAN Thoracic Surgery (Cardiothoracic Vascular Surgery); CONSULT PHYSICIAN Internal Medicine Critical Care Medicine; FAMILY PHYSICIAN Internal Medicine
PROC: B24BZZ4 Ultrasonography of Heart with Aorta, Transesophageal (ICD-10-PCS; 2024-07-08)
PROC: 02100ZC Bypass Coronary Artery, One Artery from Thoracic Artery, Open Approach (ICD-10-PCS; 2024-07-08)
PROC: 02UX0JZ Supplement Thoracic Aorta, Ascending/Arch with Synthetic Substitute, Open Approach (ICD-10-PCS; 2024-07-08)
PROC: 5A1221Z Performance of Cardiac Output, Continuous (ICD-10-PCS; 2024-07-08)
PROC: 06BP4ZZ Excision of Right Saphenous Vein, Percutaneous Endoscopic Approach (ICD-10-PCS; 2024-07-08)
PROC: 021009W Bypass Coronary Artery, One Artery from Aorta with Autologous Venous Tissue, Open Approach (ICD-10-PCS; 2024-07-08)
DX: I25.10 Atherosclerotic heart disease of native coronary artery without angina pectoris (principal); T81.19XA Other postprocedural shock, initial encounter; D62 Acute posthemorrhagic anemia; J98.11 Atelectasis; I71.21 Aneurysm of the ascending aorta, without rupture; E03.9 Hypothyroidism, unspecified; E11.9 Type 2 diabetes mellitus without complications; I25.82 Chronic total occlusion of coronary artery; E78.5 Hyperlipidemia, unspecified; G47.33 Obstructive sleep apnea (adult) (pediatric); I10 Essential (primary) hypertension; K21.9 Gastro-esophageal reflux disease without esophagitis; M50.222 Other cervical disc displacement at C5-C6 level; E86.1 Hypovolemia; D69.59 Other secondary thrombocytopenia; I95.1 Orthostatic hypotension; R30.0 Dysuria; Y83.2 Surgical operation with anastomosis, bypass or graft as the cause of abnormal reaction of the patient, or of later complication, without mention of misadventure at the time of the procedure; Z79.82 Long term (current) use of aspirin; Z79.899 Other long term (current) drug therapy; Z87.820 Personal history of traumatic brain injury; Z82.49 Family history of ischemic heart disease and other diseases of the circulatory system
CPT/HCPCS: 36415; 71045; 71046; 80048; 80053; 81003; 82248; 82330; 82565; 82805; 82810; 82947; 82962; 83036; 83735; 84132; 84302; 84520; 85014; 85018; 85025; 85027; 85049; 85610; 85730; 86850; 86900; 86901; 86920; 87070; 93005; 93312; 93320; 93325; 93880; 94002; 94010; P9045

== ENCOUNTER 2024-08-15 13:00 | Outpatient (RCR) | payer OTHER, SELFPAY ==
[2024-08-15 14:33] LABS: Glucose - Point of Care 129 mg/dl (70-99)
[2024-08-15 15:18] LABS: Glucose - Point of Care 106 mg/dl (70-99)
== END 2024-08-15 23:59 | disposition home or self-care (01) ==
LOC: CRHB 13:00
PROVIDERS: ATTENDING PHYSICIAN Internal Medicine Cardiovascular Disease; FAMILY PHYSICIAN Internal Medicine
DX: Z95.1 Presence of aortocoronary bypass graft (principal)
CPT/HCPCS: 82962; G0422; G0423

== ENCOUNTER → 2024-08-29 15:01 | Outpatient (REF) | payer OTHER, SELFPAY | LOC: RAD 15:01 | PROVIDERS: ATTENDING PHYSICIAN Nurse Practitioner Adult Health; FAMILY PHYSICIAN Internal Medicine | DX: J90 Pleural effusion, not elsewhere classified (principal) | CPT/HCPCS: 71046 ==

== ENCOUNTER → 2024-09-05 12:00 | Outpatient (REF) | payer OTHER, SELFPAY | LOC: DHSLP 12:00 | PROVIDERS: ATTENDING PHYSICIAN Internal Medicine Critical Care Medicine; FAMILY PHYSICIAN Internal Medicine | DX: G47.33 Obstructive sleep apnea (adult) (pediatric) (principal) | CPT/HCPCS: 95800 ==

== ENCOUNTER 2024-09-14 13:38 | Outpatient (RCR) | payer OTHER, SELFPAY | END 2024-09-14 23:59 | disposition home or self-care (01) | LOC: CRHB 13:38 | PROVIDERS: ATTENDING PHYSICIAN Internal Medicine Cardiovascular Disease; FAMILY PHYSICIAN Internal Medicine | DX: I25.10 Atherosclerotic heart disease of native coronary artery without angina pectoris (principal); Z95.1 Presence of aortocoronary bypass graft | CPT/HCPCS: G0422; G0423 ==

== ENCOUNTER 2024-10-14 13:25 | Outpatient (RCR) | payer OTHER, SELFPAY | END 2024-10-14 23:59 | disposition home or self-care (01) | LOC: CRHB 13:25 | PROVIDERS: ATTENDING PHYSICIAN Internal Medicine Cardiovascular Disease; FAMILY PHYSICIAN Internal Medicine | DX: I25.10 Atherosclerotic heart disease of native coronary artery without angina pectoris (principal); Z95.1 Presence of aortocoronary bypass graft | CPT/HCPCS: G0422; G0423 ==

== ENCOUNTER 2024-11-07 10:26 | Outpatient (RCR) | payer OTHER, SELFPAY | END 2024-11-07 12:29 | disposition home or self-care (01) | LOC: CRHB 10:26 | PROVIDERS: ATTENDING PHYSICIAN Internal Medicine Cardiovascular Disease; FAMILY PHYSICIAN Internal Medicine | DX: I25.10 Atherosclerotic heart disease of native coronary artery without angina pectoris (principal); Z95.1 Presence of aortocoronary bypass graft | CPT/HCPCS: G0422; G0423 ==

== ENCOUNTER → 2024-11-23 13:56 | Outpatient (REF) | payer OTHER, SELFPAY | LOC: HWRCS 13:56 | PROVIDERS: ATTENDING PHYSICIAN Internal Medicine Cardiovascular Disease; FAMILY PHYSICIAN Internal Medicine | DX: I25.10 Atherosclerotic heart disease of native coronary artery without angina pectoris (principal); I10 Essential (primary) hypertension; I77.810 Thoracic aortic ectasia; R42 Dizziness and giddiness | CPT/HCPCS: 93306 ==

== ENCOUNTER 2025-05-10 06:09 | Day surgery (SDC) | payer OTHER, SELFPAY ==
[2025-05-10 09:43] VITALS: BMI 28.3
[2025-05-10 09:44] VITALS: BP 122/75; BMI 28.3
[2025-05-10 11:57] VITALS: BP 109/71
[2025-05-10 12:00] VITALS: BP 105/68
[2025-05-10 12:15] VITALS: BP 124/69
[2025-05-10 12:30] VITALS: BP 113/72
== END 2025-05-10 12:52 | disposition home or self-care (01) ==
LOC: SDS 06:09
PROVIDERS: ATTENDING PHYSICIAN Student in an Organized Health Care Education/Training Program
DX: D12.3 Benign neoplasm of transverse colon (principal); K63.5 Polyp of colon; K63.89 Other specified diseases of intestine; K57.30 Diverticulosis of large intestine without perforation or abscess without bleeding; K64.0 First degree hemorrhoids; D50.9 Iron deficiency anemia, unspecified; K22.70 Barrett's esophagus without dysplasia; K22.89 Other specified disease of esophagus; K31.7 Polyp of stomach and duodenum; K31.89 Other diseases of stomach and duodenum; Z86.0101 Personal history of adenomatous and serrated colon polyps
CPT/HCPCS: 45385; 45380; 43239; 88305; 88342